=== PATIENT | male | born 1980 | race Caucasian/White ===

== ENCOUNTER 2017-03-04 18:59 | Emergency (ER) | payer SELFPAY ==
[2017-03-04 19:17] VITALS: RESP 16; TEMP 98.1
--- NOTE | 2017-03-04 20:21 | EDPHY ---
H & P Time Seen by Provider: 03/04/17 19:33 HPI/ROS: CHIEF COMPLAINT: Left neck mass x5 months HISTORY OF PRESENT ILLNESS: 36-year-old male remote history of melanoma, complaining of a progressively enlarging left lateral neck mass for which he has been seen by his primary care provider and by a scrubber machine tender today who recommend he come to the emergency department for further evaluation as she did not feel comfortable performing biopsy on the area. He has had no dysphagia or odynophagia. No change in voice. He does have reproducible pain with extremes of lateral movement. PHYSICAL EXAM (Prior to examination, patient consented to physical exam, hands were washed and my usual and customary physical exam procedures followed) 1) GENERAL: Well-developed, well-nourished, alert and oriented. Appears to be in no acute distress. 2) HEAD: Normocephalic 3) HEENT: sclera anicteric 4) LUNGS: Breathing comfortably. 5) SKIN: on the left lateral aspect of the patient's neck zone 2 he has a 4 cm x 4 cm freely mobile nontender mass with normal coloration. No erythema. No fluctuance. His full range of motion of the neck with no crepitus. No thyromegaly Smoking Status: Never smoked Constitutional: Initial Vital Signs Temperature (C) 36.7 C 03/04/17 19:13 Heart Rate 87 03/04/17 19:13 Respiratory Rate 16 03/04/17 19:13 Blood Pressure 133/84 H 03/04/17 19:13 O2 Sat (%) 96 03/04/17 19:13 O2 Delivery Mode Room Air Allergies/Adverse Reactions: No Known Allergies Allergy (Unverified 03/04/17 19:13) Home Medications: Medication Instructions Recorded NK [No Known Home Meds] 03/04/17 ED Images - Head Head Front/Back: 1 - mass MDM/Departure - MDM ED Course/Re-evaluation: This patient and I and his friend had a lengthy discussion regarding his left lateral neck mass or stone progressively enlarging for the past 5 months. He was seen by scrubber machine tender who sent to the emergency department for biopsy of this area this evening. Informed the patient that we do not perform biopsies from the emergency department. We discussed multiple possible etiologies for his enlarging mass including but not limited to malignancy, lipoma. From an emergency department perspective I do not think that emergent imaging studies are indicated such as ultrasound, MRI, CT scan. However, I did stress the importance of close follow-up and I have recommended follow-up with General surgery as provided him this referral information. - Depart Disposition: Home, Routine, Self-Care Clinical Impression: Mass in neck Condition: Good Instructions: Soft Tissue Mass (ED) Additional Instructions: Return to the emergency department immediately if you develop difficulty swallowing, change in voice, limitations in range of motion or any other symptoms that concern Referrals: Hilton Bowden MD [Medical Doctor] - 1-2 days without fail (Dr. Hilton Bowden is a general surgeon )
[2017-03-04 20:43] VITALS: BP 132/80; PULSE 71; O2SAT 97
== END 2017-03-04 20:43 | disposition home or self-care (01) ==
DX: R22.1 Localized swelling, mass and lump, neck (principal)

== ENCOUNTER → 2017-03-29 | Outpatient (CLI) | payer OTHER ==
[~2017-03-29] MED LIST: GADOBUTROL 10 ML VIAL IVP ONE
== END ==
LOC: FIMAGING 08:10
PROVIDERS: ATTEND Internal Medicine Hematology & Oncology
DX: C43.9 Malignant melanoma of skin, unspecified (principal)
CPT/HCPCS: A9585

== ENCOUNTER 2017-05-03 23:46 | Inpatient (IN) | payer MEDICAID ==
--- NOTE | 2017-05-03 23:56 | EDPHY ---
H & P Stated Complaint: CA pt, abd pain HPI/ROS: HPI CHIEF COMPLAINT: right lower quadrant abdominal pain times 48 hours HISTORY OF PRESENT ILLNESS: This patient is a 36-year-old male history of metastatic melanoma. Recently diagnosed 6 weeks ago. He sees Dr. Mendoza. He is not going under any chemo or radiation this time. He has chosen a natural course to treat his melanoma. He presents emergency room with 48 hours of nausea vomiting mainly bilious, and severe right lower quadrant pain. Worse when he takes a deep breath in. Additionally tells me hurts when he lifts his right leg. He denies fever. He does have chills at night. He states he has to take opioids however has been off them for 10 days. He has been doing multiple enemas per day. He denies chest pain or shortness of breath. Of note he has a very rather large growth coming out of the left side of his neck and shoulder consistent with melanoma. Past Medical History: Metastatic melanoma. Past Surgical History: No recent surgery Social History: Denies daily use drugs alcohol tobacco products. Family History: Noncontributory ROS REVIEW OF SYSTEMS: A comprehensive 10 point review of systems is otherwise negative aside from elements mentioned in the history of present illness. Exam Constitutional appears nontoxic, triage nursing summary reviewed, vital signs reviewed, awake/alert. Eyes normal conjunctivae and sclera, EOMI, PERRLA. HENT Left Neck: Shows a rather large growth left neck, left shoulder region. It is a mass bleeding. Fungating. normal inspection, atraumatic, moist mucus membranes, no epistaxis, neck supple/ no meningismus, no raccoon eyes. Respiratory clear to auscultation bilaterally, normal breath sounds, no respiratory distress, no wheezing. Cardiovascular rate normal, regular rhythm, no murmur, no edema, distal pulses normal. Gastrointestinal soft, non-tender, no rebound, no guarding, normal bowel sounds, no distension, no pulsatile mass. Genitourinary no CVA tenderness. Musculoskeletal no midline vertebral tenderness, full range of motion, no calf swelling, no tenderness of extremities, no meningismus, good pulses, neurovascularly intact. Skin pink, warm, & dry, no rash, skin atraumatic. Neurologic awake, alert and oriented x 3, AAOx3, moves all 4 extremities equally, motor intact, sensory intact, CN II-XII intact, normal cerebellar, normal vision, normal speech. Psychiatric normal mood/affect. Heme/Lymph/Immune no lymphadenopathy. Differential Diagnosis: Includes but is not limited to in a particular order acute appendicitis, ruptured appendicitis, bowel perforation, peritonitis Medical Decision Making: Plan for this patient IV establishment with IV fluid bolus IV Dilaudid for pain control IV Zofran for nausea check lactic acid, CT scan abdomen pelvis with IV contrast. Re-evaluation: 0127AM: CT report called to me by Dr. Sweeney that shows ascites in the abdomen dilated bowel loops of the large intestines extensive metastatic disease. I did discuss case with Dr. Bowden' with surgery about this patient's exquisitely tender abdomen in the were unable to see the appendix it is still possible he has a ruptured appendix or appendicitis. Given that is high white count and significant abdominal pain on exam I will have surgery see and evaluate him. It is possible that he has peritonitis from his ascites and his abdomen pain is from dilated bowel loops. I have ordered him IV Invanz. He is getting a 2nd L. and surgery will consult. I have updated the patient as well. 0202: Spoke with Dr. Zambrano who has established relationship with this patient. Will be glad to take care of the patient. I did describe this patient has a large bowel obstruction on his CT scan elevated white count and unable to visualize the appendix. He is fine with an NG tube and IV antibiotics. He is requesting the patient gets admitted to Medicine. Will be glad to consult on this patient take care of him. I have updated the patient is fine with this plan for admission. 0217AM: Lengthy discussion with this patient he has agreed for IV Invanz, agreed for NG tube and IV fluids. Nausea medicine and pain medicine. Agrees for hospitalization. Patient been updated his questions have been answered. Source: Patient - Medical/Surgical History Hx Asthma: No Hx Chronic Respiratory Disease: No Hx Diabetes: No Hx Cardiac Disease: No Hx Renal Disease: No Hx Cirrhosis: No Hx Alcoholism: No Hx HIV/AIDS: No Hx Splenectomy or Spleen Trauma: No Other PMH: PSHx: melanoma on back of neck removed. PMHx: denies - Social History Smoking Status: Never smoked Constitutional: Initial Vital Signs Temperature (C) 37.1 C 05/03/17 23:50 Heart Rate 104 H 05/03/17 23:50 Respiratory Rate 20 05/03/17 23:50 Blood Pressure 116/95 H 05/03/17 23:50 O2 Sat (%) 97 05/03/17 23:50 O2 Delivery Mode Room Air Allergies/Adverse Reactions: No Known Allergies Allergy (Unverified 05/03/17 23:49) Home Medications: Medication Instructions Recorded Ondansetron HCl [Zofran] 8 mg PO BID PRN 05/04/17 Sennosides [Senokot 8.6mg (OTC)] 1 each PO DAILY PRN 05/04/17 Medical Decision Making - Data Points Laboratory Results: Laboratory Results 05/04/17 00:00 05/04/17 00:00 Medications Given: Dexamethasone (Decadron Injection) 4 mg IVP BID ELIZABETH Stop: 11/02/17 09:40 Last Admin: 05/08/17 21:22 Dose: 4 mg Enoxaparin Sodium (Lovenox) 40 mg SC DAILY ELIZABETH Stop: 10/31/17 08:59 Last Admin: 05/08/17 08:14 Dose: Not Given Fentanyl (Duragesic) 25 mcg TD Q72H ELIZABETH Stop: 05/14/17 11:59 Last Admin: 05/07/17 14:28 Dose: 25 mcg Ertapenem 1 gm/ Sodium (Chloride) 100 mls @ 200 mls/hr IV DAILY ELIZABETH PRN Reason: Protocol Stop: 05/08/18 21:59 Last Admin: 05/08/17 13:58 Dose: 100 mls Famotidine/Sodium Chloride (Pepcid 20 Mg (Premix)) 50 mls @ 200 mls/hr IV Q12HRS ELIZABETH Stop: 11/02/17 10:14 Last Admin: 05/08/17 21:22 Dose: 50 mls Sodium Chloride (Ns) 1,000 mls @ 100 mls/hr IV CONT ELIZABETH Stop: 11/04/17 14:44 Last Admin: 05/08/17 21:29 Dose: 1,000 mls Lorazepam (Ativan Injection) 1 mg IVP Q4HRS PRN PRN Reason: Anxiety, Unable to Take PO Stop: 11/02/17 15:43 Last Admin: 05/09/17 01:54 Dose: 1 mg Ondansetron HCl (Zofran Odt) 4 mg PO Q4HRS PRN PRN Reason: Nausea/Vomiting, Use 1st Stop: 10/31/17 02:08 Last Admin: 05/07/17 22:03 Dose: 4 mg Ondansetron HCl (Zofran) 8 mg IVP Q8H PRN PRN Reason: Nausea/Vomiting, Can't Take PO Stop: 11/02/17 09:25 Last Admin: 05/08/17 15:50 Dose: 8 mg Oxycodone HCl (Oxycodone Ir) 5 - 10 mg PO Q4 PRN PRN Reason: Pain, Severe Able to Take PO Stop: 05/17/17 13:52 Last Admin: 05/08/17 22:32 Dose: 10 mg Senna/Docusate Sodium (Senokot-S) 1 - 2 tab PO BID ELIZABETH PRN Reason: Protocol Stop: 10/31/17 20:59 Last Admin: 05/08/17 21:22 Dose: 1 tab Discontinued Medications Benzocaine (Hurricaine [place]) 1 g MM EDNOW ONE Stop: 05/04/17 02:55 Last Admin: 05/04/17 03:07 Dose: 1 g Hydromorphone HCl (Dilaudid) 1 mg IVP EDNOW ONE Stop: 05/04/17 00:09 Last Admin: 05/04/17 00:27 Dose: 1 mg Hydromorphone HCl (Dilaudid) 1 mg IVP EDNOW ONE Stop: 05/04/17 02:35 Last Admin: 05/04/17 02:36 Dose: 1 mg Hydromorphone HCl (Dilaudid) 0.4 - 1 mg IVP Q4HRS PRN PRN Reason: Pain, Severe Unable to Take PO Stop: 05/14/17 02:08 Last Admin: 05/04/17 10:01 Dose: 1 mg Hydromorphone HCl (Dilaudid) 0.4 - 1 mg IVP Q2 PRN PRN Reason: Pain, Severe Unable to Take PO Stop: 05/14/17 02:46 Last Admin: 05/07/17 10:41 Dose: 0.5 mg Sodium Chloride (Ns) 1,000 mls @ 0 mls/hr IV EDNOW ONE; Wide Open PRN Reason: Protocol Stop: 05/04/17 00:09 Last Admin: 05/04/17 00:26 Dose: 1,000 mls Ertapenem 1 gm/ Sodium (Chloride) 100 mls @ 200 mls/hr IV EDNOW ONE PRN Reason: Protocol Stop: 05/04/17 00:46 Last Admin: 05/04/17 02:24 Dose: 100 mls Sodium Chloride (Ns) 1,000 mls @ 0 mls/hr IV ONCE ONE PRN Reason: Wide Open Stop: 05/04/17 01:14 Last Admin: 05/04/17 02:25 Dose: 1,000 mls Sodium Chloride (Ns) 1,000 mls @ 125 mls/hr IV CONT ELIZABETH Stop: 10/31/17 02:14 Last Admin: 05/08/17 06:33 Dose: 1,000 mls Ketorolac Tromethamine (Toradol) 15 mg IVP Q6 PRN PRN Reason: Pain, Inflammatory Stop: 05/09/17 14:48 Last Admin: 05/06/17 00:55 Dose: 15 mg Lidocaine (Uroject Lidocaine 2% Jelly) 20 ml UR ONCE ONE Stop: 05/04/17 02:54 Last Admin: 05/04/17 03:07 Dose: 20 ml Olanzapine (Zyprexa) 2.5 mg PO ONCE ONE Stop: 05/08/17 07:27 Last Admin: 05/08/17 08:13 Dose: 2.5 mg Ondansetron HCl (Zofran) 4 mg IVP EDNOW ONE Stop: 05/04/17 00:09 Last Admin: 05/04/17 00:27 Dose: 4 mg Ondansetron HCl (Zofran) 4 mg IVP Q4HRS PRN PRN Reason: Nausea/Vomiting, Can't Take PO Stop: 10/31/17 02:08 Last Admin: 05/06/17 08:51 Dose: 4 mg Ondansetron HCl (Zofran) 8 mg IVP Q4HRS PRN PRN Reason: Nausea/Vomiting, Can't Take PO Stop: 10/31/17 02:08 Last Admin: 05/06/17 09:39 Dose: 4 mg Promethazine HCl (Phenergan) 6.25 - 12.5 mg IVP Q6HRS PRN PRN Reason: Nausea/Vomiting, Use 2nd Stop: 10/31/17 02:08 Last Admin: 05/06/17 04:53 Dose: 6.25 mg Promethazine HCl (Phenergan) 12.5 mg IVP EDNOW ONE Stop: 05/04/17 03:03 Last Admin: 05/04/17 03:29 Dose: Not Given Departure - Departure Disposition: [facility] Acute Clinical Impression: Large bowel obstruction Melanoma Qualifiers: Melanoma location: unspecified site Qualified Code(s): C43.9 - Malignant melanoma of skin, unspecified Condition: Fair
[2017-05-04] MEDS ORDERED: HYDROmorphONE/DILAUDID 1 MG/ML SYR IVP ONE ×2 (00:08→02:34)
[2017-05-04] MEDS ORDERED: ONDANSETRON 4 MG/2 ML VIAL IVP ONE (00:08)
[2017-05-04] MEDS ORDERED: NS 1,000 ML IV ONE ×2 (00:08→01:13)
[2017-05-04 00:14] LABS: % IMMATURE GRANULYOCYTES 0.5 % (0.0-1.1); ABSOLUTE IMMATURE GRANULOCYTES 0.09 10^3/uL (0.00-0.10); ADD DIFF? NO; ADD MORPH? NO; ADD SCAN? NO; ATYPICAL LYMPHOCYTE FLAG 10 (0-99); FRAGMENT RBC FLAG 0 (0-99); HEMATOCRIT 31.5 % (40.0-51.0); HEMOGLOBIN 10.6 g/dL (13.7-17.5); LEFT SHIFT FLG 10 (0-99); LIPEMIA HEMOLYSIS FLAG 80 (0-99); MEAN CELL HEMOGLOBIN 29.4 pg (27.9-34.1); MEAN CELL HEMOGLOBIN CONCENTR. 33.7 g/dL (32.4-36.7); MEAN CELL VOLUME 87.5 fL (81.5-99.8); MEAN PLATELET VOLUME 9.6 fL (8.7-11.7); PLATELET CLUMPS FLAG 0 (0-99); PLATELET COUNT 677 10^3/uL (150-400); RED CELL DISTRIBUTION WIDTH 11.6 % (11.5-15.2)
[2017-05-04] MEDS ORDERED: ERTAPENEM 1 GM in NS 100 ML IV ONE (00:17)
[2017-05-04 00:26] LABS: ALANINE AMINOTRANSFERASE 32 IU/L (21-72); ALBUMIN 3.8 g/dL (3.5-5.0); ALKALINE PHOSPHATASE 123 IU/L (38-126); ANION GAP 14 mEq/L (8-16); ASPARTATE AMINOTRANSFERASE 23 IU/L (17-59); BILIRUBIN,TOTAL 0.6 mg/dL (0.1-1.4); BILIRUBIN-CONJUGATED 0.2 mg/dL (0.0-0.5); BILIRUBIN-UNCONJUGATED 0.4 mg/dL (0.0-1.1); CALCIUM 10.2 mg/dL (8.5-10.4); CARBON DIOXIDE 25 mEq/l (22-31); CHLORIDE 94 mEq/L (97-110); CREATININE 1.1 mg/dL (0.7-1.3); GLOMERULAR FILTRATION RATE > 60; GLUCOSE 124 mg/dL (70-100); POTASSIUM 4.7 mEq/L (3.5-5.2); SODIUM 133 mEq/L (134-144); TOTAL PROTEIN 7.4 g/dL (6.3-8.2)
[2017-05-04 00:31] LABS: APTT 30.5 SEC (23.0-38.0); INR 1.16 (0.83-1.16); PROTIME(PATIENT) 14.8 SEC (12.0-15.0)
[2017-05-04] MEDS ORDERED: IOPAMIDOL (ISOVUE-300) 100 ML BTL ONE (00:38)
[2017-05-04] MEDS ORDERED: HYDROmorphONE/DILAUDID 1 MG/ML SYR IVP PRN (02:09)
[2017-05-04] MEDS ORDERED: ACETAMINOPHEN 325 MG TAB PO PRN (02:09)
[2017-05-04] MEDS ORDERED: LIDOCAINE 2% JELLY 20 ML (UROJECT) ONE (02:27)
[2017-05-04] MEDS ORDERED: BENZOCAINE UNIT DOSE SPRAY HURRICAINE MM ONE (02:27)
[2017-05-04] MEDS ORDERED: LIDOCAINE 2% JELLY 20 ML (UROJECT) UR ONE (02:53)
[2017-05-04] MEDS ORDERED: BENZOCAINE 57 G CAN HURRICAINE MM ONE (02:54)
[2017-05-04] MEDS ORDERED: PROMETHAZINE HCL 25 MG/ML INJ ONE (02:56)
[2017-05-04] MEDS ORDERED: PROMETHAZINE HCL 25 MG/ML INJ IVP ONE (03:02)
[2017-05-04] MEDS: PROMETHAZINE HCL 25 MG/ML INJ IVP PRN (03:03)
--- NOTE | 2017-05-04 03:32 | GHP ---
[f rep st] HISTORY AND PHYSICAL DATE OF ADMISSION: 05/04/2017 CHIEF COMPLAINT: Abdominal pain. HISTORY OF PRESENT ILLNESS: A 36-year-old male with a diagnosis of metastatic melanoma, who presents with rapid onset severe right-sided abdominal discomfort. The patient reports smoldering, less intense abdominal pain in the 24 hours prior to presentation. The morning of presentation developed very sharp intense abdominal discomfort with associated nausea and vomiting. He reports that his oral intake has been nearly 0 in the course of the last 48 hours. Prior to that, it has been limited to typically a meal a day. Reports constipation that he has been using enemas and laxatives for. Denies any bloody stools. Denies dysuria or hematuria. Denies cough. Does have difficulty with deep breathing now that he has the severe abdominal pain. Denies any vision changes. Has severe pain associated with his melanoma of his left neck. Denies dysphagia. PAST MEDICAL HISTORY: Metastatic melanoma with metastases to the liver, lung. SOCIAL HISTORY: Negative for tobacco, alcohol. He is using marijuana for pain. FAMILY HISTORY: Negative for melanoma. ADVANCED DIRECTIVES: The patient wishes to be full cor, full tube. His girlfriend would be his medical decision maker. REVIEW OF SYSTEMS: A 10-point review of systems is negative with the exception of that reported in the HPI. PHYSICAL EXAMINATION: VITAL SIGNS: Blood pressure 116/95, heart rate 104, respiratory rate 20, 97% on room air, 37.1. GENERAL: This is a thin-appearing young male, uncomfortable, lying in bed. HEENT: Notable for a large mass of the left neck/shoulder, which is irregular and necrotic, fungating. CARDIAC: Patient is regular rate and rhythm. PULMONARY: Clear to auscultation bilaterally. GASTROINTESTINAL: The patient is thin. Has decreased bowel sounds. ABDOMEN: Soft. He is tender to palpation in the right upper and lower quadrants. There is voluntary guarding. MUSCULOSKELETAL: Negative for any lower extremity edema. SKIN: Negative for any rashes. NEUROLOGIC: The patient is alert and oriented x3. PSYCHIATRIC: He is pleasant and cooperative on interview and examination. DATA: White count 18.06, hematocrit 31, platelets of 677. Sodium of 133, creatinine 1.1. Liver function tests are normal. CT of the abdomen shows a markedly dilated large bowel with metastatic disease in both the lungs and liver. There is also a suspect mass of the left kidney. No clear transition point identified by Radiology. ASSESSMENT AND PLAN: This is a 36-year-old male with metastatic melanoma presenting with abdominal pain. 1. Acute large bowel obstruction. The patient has nausea, vomiting, severe pain, intolerant of oral intake with concerns for mechanical obstruction. The patient is being admitted. NG tube placed. IV fluids and IV pain medications initiated. Dr. Zambrano, who is his primary surgeon in the outpatient setting, will follow today. Have discussed goals of care with this patient. See below. 2. Acute hyponatremia. Suspect hypovolemic in nature. Based on his decreased oral intake, will carefully fluid resuscitate and recheck in the morning. 3. Widely metastatic melanoma. The patient is interested in meeting our palliative care team, had already established upcoming appointments with [facility]. I do believe based on his imaging that hospice is an appropriate direction for him. Will consult Palliative Care while he is inpatient, as above. Continue aggressively treating his pain. 4. Acute leukocytosis - suspect 2/2 acute bowel obstruction - follow with supportive care 4. Prophylaxis with Lovenox. 5. Diet. N.p.o. with an NG tube and IV fluids. DISPOSITION: I expect greater than 2 midnights, as the patient is presenting with bowel obstruction and widely metastatic melanoma that requires diagnostic and therapeutic plan. I have discussed the case with the emergency room physician. Patient will be triaged to the medical-surgical floor for care. /[id number]/MODL MTDD
[2017-05-04] MEDS: NS 1,000 ML IV SCH (04:15)
[2017-05-04] MEDS: HYDROmorphONE/DILAUDID 1 MG/ML SYR IVP PRN ×4 (06:18→20:59)
[2017-05-04] MEDS: ONDANSETRON 4 MG/2 ML VIAL IVP PRN ×3 (06:18→20:42)
--- NOTE | 2017-05-04 09:02 | HOSPPROG ---
Hospitalist Progress Note Assessment/Plan: #Metastatic melanoma: primary Oncologist, Kelly #Acute abdominal pain: Dr. Zambrano evaluated. Unclear if truly LBO or rather tumor burden. NG clamped. He is reviewing with Radiology #Acute on chronic pain: was having benefit from marijuana. previously using Oxycontin 20mg BID. Start Fentanyl patch 25mcg and uptitrate as needed. PRN IV dilaudid PRN #Goals: Po hospice to evaluate today. Has family in [place]. #DVT ppx: Lovenox Subjective: pain improved this morning. Objective: Vital Signs Temp Pulse Resp BP Pulse Ox 36.5 C 87 16 132/87 H 95 05/04/17 08:18 05/04/17 08:18 05/04/17 08:18 05/04/17 08:18 05/04/17 08:18 05/03/17 05/04/17 05/05/17 05:59 05:59 05:59 Intake Total 2000 Output Total 100 Balance 1900 PT 14.8 SEC (12.0-15.0) 05/04/17 00:00 INR 1.16 (0.83-1.16) 05/04/17 00:00 - Physical Exam Constitutional: other (thin, restless) Ears, Nose, Mouth, Throat: dry mucous membranes, other (left neck/shoulder mass with necrosis and bleeding) Cardiovascular: regular rate and rhythym Respiratory: no respiratory distress Gastrointestinal: other (quiet BS. Mild RLQ with palp) Genitourinary: no bladder fullness Skin: warm Musculoskeletal: full muscle strength Neurologic: AAOx3, CN II-XII Intact Psychiatric: interacting appropriately ICD10 Worksheet Patient Problems: Problems Problem Status Onset Large bowel obstruction Acute Melanoma Acute
--- NOTE | 2017-05-04 09:48 | SOAPPROG ---
SOAP Progress Note Assessment/Plan: Assessment:patient seen and evaluated. progressive metastatic melanoma, RLQ pain, leucocytosis. images reviewed with family and care plan discussed at length. doubt LBO given lack of SB dilation. still query appy as a possibility vs progressive abdominal tumor burden. will review with rads. family also discussing desire for active treatment vs palliation which will also factor into their decision. will return later today to discuss further. leaving NG clamped for now. Plan: 05/04/17 09:45 Objective: Vital Signs Temp Pulse Resp BP Pulse Ox 36.5 C 87 16 132/87 H 95 05/04/17 08:18 05/04/17 08:18 05/04/17 08:18 05/04/17 08:18 05/04/17 08:18 05/03/17 05/04/17 05/05/17 05:59 05:59 05:59 Intake Total 2000 Output Total 100 Balance 1900 PT 14.8 SEC (12.0-15.0) 05/04/17 00:00 INR 1.16 (0.83-1.16) 05/04/17 00:00 ICD10 Worksheet Patient Problems: Problems Problem Status Onset Large bowel obstruction Acute Melanoma Acute
[2017-05-04 09:50] LABS: HEMATOCRIT 27.6 % (40.0-51.0); HEMOGLOBIN 9.3 g/dL (13.7-17.5); MEAN CELL HEMOGLOBIN 29.9 pg (27.9-34.1); MEAN CELL HEMOGLOBIN CONCENTR. 33.7 g/dL (32.4-36.7); MEAN CELL VOLUME 88.7 fL (81.5-99.8); RED BLOOD CELL COUNT 3.11 10^6/uL (4.40-6.38); RED CELL DISTRIBUTION WIDTH 11.8 % (11.5-15.2)
[2017-05-04 10:20] LABS: ANION GAP 10 mEq/L (8-16); CALCIUM 8.9 mg/dL (8.5-10.4); CARBON DIOXIDE 24 mEq/l (22-31); CHLORIDE 100 mEq/L (97-110); CREATININE 0.9 mg/dL (0.7-1.3); GLOMERULAR FILTRATION RATE > 60; GLUCOSE 97 mg/dL (70-100); POTASSIUM 4.7 mEq/L (3.5-5.2); SODIUM 134 mEq/L (134-144)
[2017-05-04] MEDS: ENOXAPARIN 40 MG/0.4 ML SYR SC SCH (11:35)
[2017-05-04] MEDS ORDERED: LACTULOSE 20 GM/30 ML UDCUP PO PRN (11:44)
[2017-05-04] MEDS ORDERED: BISACODYL 10 MG SUPP PR PRN (11:44)
[2017-05-04] MEDS ORDERED: MAGNESIUM HYDROXIDE 30 ML UDCUP PO PRN (11:44)
[2017-05-04] MEDS ORDERED: POLYETHYLENE GLYCOL 3350 17 GM PKT PO PRN (11:44)
[2017-05-04] MEDS: fentaNYL 25 MCG PATCH TD SCH (12:11)
[2017-05-04 15:33] LABS: COLOR YELLOW; LEUKOCYTE ESTERASE,URINE NEGATIVE (NEGATIVE); NITRITE,URINE NEGATIVE (NEGATIVE)
--- NOTE | 2017-05-04 15:44 | GCON ---
[f rep st] CONSULTATION MEDICAL ONCOLOGY CONSULTATION REASON FOR CONSULTATION: Metastatic melanoma. RECOMMENDATIONS: We could certainly try Tafinlar 150 mg p.o. b.i.d. 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 What these mutations mean are that this cancer may not be as responsive as a mutation of BRAF with V600E. The alternative recommendation I discussed was home hospice. EXECUTIVE SUMMARY: The patient is a gentleman who was diagnosed in 2012 with a cutaneous melanoma apparently stage I, treated with a wide excision, without a sentinel node biopsy. The patient is 36 years of age. He did well until he developed a nodule on his left shoulder which began about October 2016. Ultimately this was biopsied and found to be recurrent metastatic melanoma and it was sent for BRAF testing and the above-noted mutations were identified. The patient came into the hospital because of significant abdominal pain, including pain in the left upper quadrant. He had taken himself off the oxycodone that he was given and placed himself on CBD oil for management of his pain. The patient had unrelenting and severe pain and came to the emergency room for help. His history is that he generally had favorable health. He grew up in [place] in the [place] area. He has no history of melanoma in the family and his current support system includes his girlfriend. The patient is going through a divorce and he has 2 children back in [place]. The patient's mother is currently with him here now and he has a brother who offers some support from [place]. 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 FAMILY HISTORY: Noncontributory. MEDICATIONS: He previously was on no regular medications. REVIEW OF SYSTEMS: Reveals that he is not having any headaches. He has been in significant pain, mainly in the abdomen. The pain in the abdomen is mostly localized in the right upper quadrant and in the right lower quadrant. He had a CAT scan in the process of admitting the patient, which reveals that he has extensive metastatic disease. He has numerous pulmonary metastases as well as numerous liver metastases, probably 20 and the largest of which is 3.2 cm in size as well as periaortic disease, right adrenal metastasis. CLINICAL EXAM: GENERAL: Reveals a well-developed gentleman looking older than his stated age. HEENT: Shows he is alert and oriented. He has no scleral icterus. The patient has a draining left neck mass that is large, necrotic and fungating. LUNGS: Clear to P and A. CV: Regular. S1 is normal, S2 is normally split. ABDOMEN: Asthenic and scaphoid. He has no hepatosplenomegaly that I detect. He has no extremity edema or calf tenderness. NEUROLOGIC: He is currently intact. Please note he had an MRI of the brain in March which was negative. 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 The combination of these 2 mutations implies that this disease may be more resistant than typical BRAF mutations and the location of the BRAF mutation also may imply some resistance. Nonetheless, I think is not unreasonable to give a trial of dabrafenib and trametinib, but there are side effects to that including fever, diarrhea, some mouth sores, skin rash, photo dermatitis and some increase risk of nonmelanomatous cutaneous skin cancer. I think if it is successful, you will usually get a response within a few weeks of starting treatment. If it is unsuccessful, treatment could easily be discontinued. I encouraged our staff to get him on Medicaid. I think an alternative to this approach would be to use home hospice care. Obviously, even with Tafinlar and trametinib, survival rates on an average are less than a couple of years, but certainly without any treatment, I think this will run its course within a month or maybe 2, but that is only speculative on my part. /[id number]/MODL MTDD
--- NOTE | 2017-05-04 17:54 | GCON ---
[f rep st] CONSULTATION DATE OF CONSULTATION: 05/04/2017 REASON FOR EVALUATION: Metastatic melanoma, possible appendicitis versus large bowel obstruction. HISTORY OF PRESENT ILLNESS: A 36-year-old male, well known to me, status post remote back melanoma excision. A sentinel node biopsy was not initially completed. The patient presented to my office in March with a rapidly progressive left neck mass with severe left shoulder pain. An incisional biopsy was performed, confirming metastatic melanoma. Subsequent CT scans were performed, showing metastatic melanoma to the lungs as well as retroperitoneum. The patient did follow up with Dr. Mendoza from Oncology. He denied traditional means of therapy and opted to proceed with more alternative-type measures. He presented to the emergency room earlier this morning with a 2-day history of worsening right lower quadrant abdominal pain. He had been having nausea and vomiting over the past week. He had been on narcotic pain medicines which would cause severe constipation for him in regard to his left shoulder and neck pain. He had been using multiple cathartics with some relief of his left upper quadrant pain initially. The right lower quadrant pain was new and progressive, which prompted them to come to the emergency room to rule out appendicitis. CT imaging was performed at that time, disclosing diffusely dilated large intestine and the appendix was not able to be visualized. A nasogastric tube was placed and the patient admitted for further pain control and consultative measures. To my exam, the patient and girlfriend note that his right lower quadrant pain is feeling slightly better on exam this morning. He denies fevers or chills at home. He denies chest pains or shortness of breath. His bowel movements, albeit soft when he has them, have not been pencil thin in nature. He reports some mild pelvic discomfort, and this has been insignificant compared to his neck pain and intermittent left upper quadrant pain which is relieved with bowel movements. PAST MEDICAL HISTORY: Melanoma. PAST SURGICAL HISTORY: None. MEDICATIONS: Cannabis. ALLERGIES: No known drug allergies. SOCIAL HISTORY: No alcohol. No tobacco. Significant other. FAMILY HISTORY: Notable for melanoma. REVIEW OF SYSTEMS: Notable for the above pain and GI-related complaints. Otherwise, other 10-point review of systems unremarkable. LABORATORY STUDIES: Last night, hemoglobin 11, platelets of 677, white count of 18. Repeat labs this morning: White count down to 14. INR 1.1. Liver enzymes within reference range. Lipase 320. PHYSICAL EXAM: HEENT: Anicteric NECK: Large exophytic softball size left supraclavicular necrotic mass with tenderness. HEART: Regular. LUNGS: Clear. ABDOMEN: Soft, right lower quadrant tenderness with minimal guarding. No rebound. No Rovsing. No Psoas sign. No mass. Normal skin. EXTREMITIES: Unremarkable. NEURO: Alert, lethargic. CT abdomen and pelvis images were directly reviewed on PACS and later with Radiology. Extensive progressive metastatic disease including pulmonary and liver metastases and progression of left perinephric adenopathy/mass lesions. The colon was noted to be diffusely dilated. Small bowel is not noted to be particularly dilated. Query ascites versus pelvic metastatic disease. Appendix not able to be definitively visualized, though no secondary findings of appendicitis are seen. IMPRESSIONS: 1. Metastatic melanoma. 2. Right lower quadrant abdominal pain. The patient was seen multiple times throughout the morning. His right lower quadrant pain has slightly improved. He tolerated nasogastric tube clamping without increased nausea or vomiting with minimal residual volumes noted. I suspect the patient's symptoms are most likely due to progressive melanoma. He does not appear to be clinically obstructed, rather likely more of a functional colonic ileus likely resultant from medications and/or tumor burden. While appendicitis is not completely ruled out, I am encouraged by his slight improvement in symptoms and decreasing white count throughout his hospitalization. His nasogastric tube has been removed. I would agree with continued empiric antibiotic therapy, which does have some potential benefit in treating uncomplicated appendicitis rather than surgical exploration in this high-risk patient. The patient is exploring all options, including consideration for traditional therapy directed toward his melanoma versus possible palliative options as well. Care plan was extensively discussed with the patient and significant other at bedside on multiple occasions throughout the day as well as with nursing staff and with Dr. Viramontes. Will continue to follow with you and follow his serial abdominal exams should the need for laparoscopic intervention be necessary. /[id number]/MODL MTDD
--- NOTE | 2017-05-04 18:09 | WOCRNPDOC ---
WOCRN Advanced Assessment Note - Skin Integrity Problem, Advanced Assess Left Upper Clavicle Tumor Dressing Type: ABD Pad, Gauze Dressing Description: Clean/Dry, Intact Exudate Amount: Moderate Exudate Characteristic(s): Sanguinous Integumentary Issue Intervention: Dressing Changed, Dressing Initialed & Dated Monica Wound Tissue: Erythema Site Odor: Slight, Musky Site Measurement - Head-to-Toe Length X Width X Depth (cm): 5x5x-7 (7 cm raised) Skin Integrity Problem Comment: Large fungating tumor superior to clavicle. Tumor is vascular and necrotic, and per report from patient's girlfriend drains serosangenous fluid daily which recently became odiferous. Skin prep was applied monica wound after patient's chest/back/neck hair was cut with clippers. Tumor was wrapped in a silver contact layer (acticoat flex 7) and then covered with ABD. Extensive discussions with patient's girlfriend re: plan of care and dressing changes. Extra supplies given for home dressing changes. Wound care will round again 05/06.
[2017-05-04] MEDS: SENNOSIDES/DOCUSATE SODIUM TAB PO SCH ×2 (20:24→20:58)
--- NOTE | 2017-05-04 21:24 | PDPCPN ---
Palliative Care Progress Note Assessment/Plan: Referring provider: Dr Walls\ Reason for consult: Complex medical decision making Symptom control HPI: Arian Foster (Jon) is a 36 yo male with PMH remote melanoma now metastatic dx to liver and lung (dx February 2017) admitted to the hospital for increased right lower abdominal pain and nausea/vomiting. Ct of abdomen with possible large bowel obstruction with ng tube and surgery consult. Pain improved and most likely 2/2 worsening of met disease ng tube removed. Has been receiving alternative treatments since dx but now is seeking possible chemotherapy treatment. Palliative care consulted for complex medical decision making. Met with Reno, partner Renata, and friend at the bedside this afternoon. Reno was fatigued so conversation was somewhat limited due to this. We discussed his goals and hopes. Both he and Renata have hopes of a miracle cure and believe in non traditional ways of healing. we discussed quality of life which to Reno means being able to interact with people important in his life but also not be in terrible pain. Discussed options including hospice care. Po was present to give hospice information. Reno is undecided what to do but wants life prolongation. We discussed trying options does not mean he couldn't change his mind and consider other options as time passes. Goal is to keep his quality of life in mind with hope of life prolongation. Assessment: Physical: - Pain: abdominal pain and left shoulder pain - on fentanyl patch 25 mcg/hr - continue PRn with dilaudid or roxanol 5-10 mg PO Q2hr PRN - might consider lidocaine cream to left shoulder to help with pain - fatigue - maintain normal sleep/wake cycle - constipation - continue bowel protocol with senna and colace Emotional/psychological: has good support from close friends and partner Advanced Care Planning: Is patient decisional?: yes Code Status: full MD POA: unknown Plan: Has met with hospice and still deciding on options treatment vs hospice care. He would like some life prolongation but also with quality of life. palliative care to follow. Subjective: Just really tired Objective: Social History: Lives with partner Renata. has 2 children 5 and 8 from previous marriage who live in [place]. 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 Medication list reviewed ROS: General: fatigue, weakness, weight loss ENT: negative Resp: negative GI: poor appetite, abdominal pain : negative MS: negative Skin: left clavicle wound Neuro: negative Psych: negative Functional assessment: PPS: 60% Functional status: independent with ADLs Vital Signs Temp Pulse Resp BP Pulse Ox 37.2 C 92 14 134/92 H 94 05/04/17 20:54 05/04/17 20:54 05/04/17 20:54 05/04/17 20:54 05/04/17 20:54 Laboratory Results 05/04/17 09:40 05/04/17 09:40 05/03/17 05/04/17 05/05/17 05:59 05:59 05:59 Intake Total 2000 Output Total 100 350 Balance 1900 -350 PT 14.8 SEC (12.0-15.0) 05/04/17 00:00 INR 1.16 (0.83-1.16) 05/04/17 00:00 Physical Exam - Physical Exam General Appearance: alert, no apparent distress Respiratory: No respiratory distress, No accessory muscle use Skin: normal color, warm/dry Extremities: No pedal edema Neuro/Psych: alert, oriented x 3 ICD10 Worksheet Patient Problems: Problems Problem Status Onset Large bowel obstruction Acute Melanoma Acute Palliative care encounter Acute - ICD10 Problem Qualifiers (1) Palliative care encounter
[2017-05-04] MEDS: ERTAPENEM 1 GM in NS 100 ML IV SCH (23:56)
[2017-05-05] MEDS: NS 1,000 ML IV SCH ×3 (00:01→22:46)
[2017-05-05] MEDS: KETOROLAC 15 MG/1 ML SDV IVP PRN ×3 (00:08→15:24)
[2017-05-05 06:12] LABS: HEMATOCRIT 25.8 % (40.0-51.0); HEMOGLOBIN 8.7 g/dL (13.7-17.5); LIPEMIA HEMOLYSIS FLAG 80 (0-99); MEAN CELL HEMOGLOBIN CONCENTR. 33.7 g/dL (32.4-36.7); PLATELET COUNT 520 10^3/uL (150-400); RED CELL DISTRIBUTION WIDTH 11.8 % (11.5-15.2)
[2017-05-05 06:27] LABS: ANION GAP 10 mEq/L (8-16); CALCIUM 8.5 mg/dL (8.5-10.4); CARBON DIOXIDE 24 mEq/l (22-31); CHLORIDE 100 mEq/L (97-110); CREATININE 0.8 mg/dL (0.7-1.3); GLOMERULAR FILTRATION RATE > 60; GLUCOSE 82 mg/dL (70-100); POTASSIUM 4.5 mEq/L (3.5-5.2); SODIUM 134 mEq/L (134-144)
[2017-05-05] MEDS: ONDANSETRON 4 MG/2 ML VIAL IVP PRN ×3 (07:56→20:25)
[2017-05-05] MEDS: ERTAPENEM 1 GM in NS 100 ML IV SCH (08:39)
[2017-05-05] MEDS: SENNOSIDES/DOCUSATE SODIUM TAB PO SCH ×2 (08:40→22:59)
--- NOTE | 2017-05-05 08:47 | SOAPPROG ---
[facility] Progress Note Assessment/Plan: Assessment: # 1 BRAF mutated melanoma: even though this is not a V600E and there is an associated NRAS mutation i think it would be reasonable as did Dr. Mendoza to give a trial of dabrafenib and trametinib. the doses are 150 mg BID and 2 mg Q Day respectively. The SE include fever rash GI. They will need Medicaid and or indigent drug replacement. Bemetinib is not available. #2. Pain control: doing a little better. Plan: 05/05/17 08:24 Subjective: Reno is interested in pursuing treatment. Gutierrez is a little better. Objective: Vital Signs Temp Pulse Resp BP Pulse Ox 37.1 C 83 14 125/79 H 105 H 05/05/17 05:39 05/05/17 05:39 05/05/17 05:39 05/05/17 05:39 05/05/17 05:39 Laboratory Results 05/05/17 05:40 05/05/17 05:40 05/04/17 05/05/17 05/06/17 05:59 05:59 05:59 Intake Total 2000 Output Total 100 625 Balance 1900 -625 PT 14.8 SEC (12.0-15.0) 05/04/17 00:00 INR 1.16 (0.83-1.16) 05/04/17 00:00 - Time Spent With Patient Time Spent With Patient: 60 min ICD10 Worksheet Patient Problems: Problems Problem Status Onset Large bowel obstruction Acute Melanoma Acute Palliative care encounter Acute
--- NOTE | 2017-05-05 08:48 | HOSPPROG ---
Hospitalist Progress Note Assessment/Plan: #Metastatic melanoma: plan for dabrafenib, trametinib. Medicaid approved #Acute abdominal pain: Dr. Zambrano evaluated. Unclear if truly LBO or rather tumor burden. Had small BM, trial clears this morning #Acute on chronic pain: improved with addition of Fentanyl patch and Toradol. PRN IV dilaudid PRN #Nausea: Zofran PRN #Neck mass: wound care assisting with dressings #Goals: Po hospice evaluated 05/04. Has opted for oral chemo #DVT ppx: Lovenox #Diet: ADAT #Disp: warrants inpt care with acute pain requiring IV opioids, antiemetics Time spent on visit: 45 min reviewing records, counseling patient on pain control, reviewing case with Dr. Viramontes Subjective: had small BM, passing gas. Feels hungry Objective: Vital Signs Temp Pulse Resp BP Pulse Ox 37.1 C 83 14 125/79 H 105 H 05/05/17 05:39 05/05/17 05:39 05/05/17 05:39 05/05/17 05:39 05/05/17 05:39 Laboratory Results 05/05/17 05:40 05/05/17 05:40 05/04/17 05/05/17 05/06/17 05:59 05:59 05:59 Intake Total 2000 Output Total 100 625 Balance 1900 -625 PT 14.8 SEC (12.0-15.0) 05/04/17 00:00 INR 1.16 (0.83-1.16) 05/04/17 00:00 - Physical Exam Constitutional: no apparent distress, other (thin) Eyes: PERRL Ears, Nose, Mouth, Throat: moist mucous membranes, dry mucous membranes, other ( large left neck/shoulder mass dressed with serosang drainage) Respiratory: no respiratory distress, no rales or rhonchi Gastrointestinal: normoactive bowel sounds, tenderness (RUQ and epigastric TTP) , No rebound, No distension Genitourinary: no bladder fullness Skin: warm Musculoskeletal: full muscle strength Neurologic: AAOx3, CN II-XII Intact Psychiatric: interacting appropriately ICD10 Worksheet Patient Problems: Problems Problem Status Onset Large bowel obstruction Acute Melanoma Acute Palliative care encounter Acute
[2017-05-05] MEDS: PROMETHAZINE HCL 25 MG/ML INJ IVP PRN ×2 (11:24→12:50)
[2017-05-05] MEDS: HYDROmorphONE/DILAUDID 1 MG/ML SYR IVP PRN ×2 (13:11→20:25)
--- NOTE | 2017-05-05 14:31 | PDPCPN ---
Palliative Care Progress Note Assessment/Plan: HPI: Arian Foster (Jon) is a 36 yo male with PMH remote melanoma now metastatic dx to liver and lung (dx February 2017) admitted to the hospital for increased right lower abdominal pain and nausea/vomiting. Ct of abdomen with possible large bowel obstruction with ng tube and surgery consult. Pain improved and most likely 2/2 worsening of met disease ng tube removed. Has been receiving alternative treatments since dx but now is seeking possible chemotherapy treatment. Palliative care consulted for complex medical decision making. Reno seen this afternoon with Juliana at the bedside. Discussed he has decided to start treatment but also wants to find a balance between traditional treatment and holistic care. Discussed resources at discharge. Also started discussion of advanced care planning with naming an MDPOA as well as code status. Reno and Juliana are planning on continuing conversations around advanced directives and Reno feels [facility] understands his wishes well. Assessment: Physical: - Pain: abdominal pain and left shoulder pain - on fentanyl patch 25 mcg/hr - continue PRn with dilaudid or roxanol 5-10 mg PO Q2hr PRN - might consider lidocaine cream to left shoulder to help with pain - fatigue - maintain normal sleep/wake cycle - constipation - continue bowel protocol with senna and colace Emotional/psychological: has good support from close friends and partner Advanced Care Planning: Is patient decisional?: yes Code Status: full MD POA: would like to name partner Juliana as MDPOA. Will fill out paperwork. Plan: To start treatment with oncology. Medicaid was approved. Will need RN services at home for wound care as well as palliative care for symptom management. Subjective: pain is 6/10 and tolerable Objective: Vital Signs Temp Pulse Resp BP Pulse Ox 37.0 C 90 16 124/86 H 98 05/05/17 13:02 05/05/17 13:02 05/05/17 13:02 05/05/17 13:02 05/05/17 13:02 Laboratory Results 05/05/17 05:40 05/05/17 05:40 05/04/17 05/05/17 05/06/17 05:59 05:59 05:59 Intake Total 2000 Output Total 100 625 Balance 1900 -625 PT 14.8 SEC (12.0-15.0) 05/04/17 00:00 INR 1.16 (0.83-1.16) 05/04/17 00:00 Physical Exam - Physical Exam General Appearance: alert, no apparent distress Respiratory: No respiratory distress, No accessory muscle use Skin: normal color, warm/dry Extremities: No pedal edema Neuro/Psych: alert, oriented x 3 ICD10 Worksheet Patient Problems: Problems Problem Status Onset Large bowel obstruction Acute Melanoma Acute Palliative care encounter Acute - ICD10 Problem Qualifiers (1) Palliative care encounter
--- NOTE | 2017-05-05 14:34 | ASMTCMCOM ---
CM Note CM Note Notes: Med Data here to assess patient for Medicaid. Notified Medicaid approved. Pt physician notified. Cl eared for Home Care if needed as well as Chemo therapy. Date Signed: 05/05/2017 02:33 PM Electronically Signed By:Griselda Sauer
--- NOTE | 2017-05-05 17:26 | ASMTCMCOM ---
CM Note CM Note Notes: Met with patient and partner to discuss plans for discharge. Pt expressed concerns around the many things he has had to be addressing during his time here. He was however anxious to discuss options to assist them at home. I again told them they had been approved for Medicaid which he was deeply grateful for. He also said he would be very open to having [facility] home care coming in. They wondered if there would be a possibility of getting a hospital bed and I told them this could be checked through Medicaid. Also, We discussed the possibi lity of getting HCBS services which could be explored further. They are also very open to having [facility] in conjunction with [facility]. They expressed appreciation for the support they were receiving at [facility]. C/M will continue to follow. Date Signed: 05/05/2017 05:25 PM Electronically Signed By:Griselda Sauer
--- NOTE | 2017-05-05 18:58 | SOAPPROG ---
SOAP Progress Note Assessment/Plan: Assessment: RLQ better. no nausea or vomiting. mult small pellets / bms. hungry. has decided to try oral BRAF therapy. afebrile. comfortable. abd markedly less tender. wbc 10. RLQ pain ?appy vs tumor vs both - low clinical suspicion for lbo at this time. would continue abx while hospitalized for poss appy - he is improving to this end with improving labs. will continue to follow with you. care plan discussed with patient and s.o. Plan: 05/04/17 09:45 05/05/17 18:55 Objective: Vital Signs Temp Pulse Resp BP Pulse Ox 37.4 C 92 16 133/89 H 95 05/05/17 16:00 05/05/17 16:00 05/05/17 16:00 05/05/17 16:00 05/05/17 16:00 Laboratory Results 05/05/17 05:40 05/05/17 05:40 05/04/17 05/05/17 05/06/17 05:59 05:59 05:59 Intake Total 2000 550 Output Total 100 625 Balance 1900 -625 550 PT 14.8 SEC (12.0-15.0) 05/04/17 00:00 INR 1.16 (0.83-1.16) 05/04/17 00:00 ICD10 Worksheet Patient Problems: Problems Problem Status Onset Large bowel obstruction Acute Melanoma Acute Palliative care encounter Acute
--- NOTE | 2017-05-05 19:44 | SOAPPROG ---
SOAP Progress Note Assessment/Plan: Assessment:Qi stagnation in Large Intestine. Heat and stagnation in Liver. Plan:Treat daily while in hospital. Regulate Qi and Blood, relieve pain. Treatment: LI 4, LI 11, ST 25, 36,37, L Carine 3, R Sp 6, R Sp 2, Juanpablo 6. retain needles 45 minutes, stimulate 3-4x during treatment. 05/05/17 19:46 Subjective: Reviewed patient file and history. Met with patient and girlfriend/SO Akasia. Patient reports pain, mainly in area of tumor on neck/shoulder as well as abdominal area. Also nausea, and lack of bm, though he has has some small ones today. Objective: Vital Signs Temp Pulse Resp BP Pulse Ox 37.4 C 92 16 133/89 H 95 05/05/17 16:00 05/05/17 16:00 05/05/17 16:00 05/05/17 16:00 05/05/17 16:00 Laboratory Results 05/05/17 05:40 05/05/17 05:40 05/04/17 05/05/17 05/06/17 05:59 05:59 05:59 Intake Total 2000 550 Output Total 100 625 Balance 1900 -625 550 PT 14.8 SEC (12.0-15.0) 05/04/17 00:00 INR 1.16 (0.83-1.16) 05/04/17 00:00 Patient appears thin, fairly low energy, but alert and aware, easy to communicate with. Pulse is rapid, thin, somewhat wiry. ICD10 Worksheet Patient Problems: Problems Problem Status Onset Large bowel obstruction Acute Melanoma Acute Palliative care encounter Acute
[2017-05-06] MEDS: KETOROLAC 15 MG/1 ML SDV IVP PRN (00:55)
[2017-05-06] MEDS: PROMETHAZINE HCL 25 MG/ML INJ IVP PRN (04:53)
[2017-05-06] MEDS: HYDROmorphONE/DILAUDID 1 MG/ML SYR IVP PRN ×5 (05:00→21:58)
[2017-05-06] MEDS: NS 1,000 ML IV SCH ×2 (06:55→15:59)
[2017-05-06 07:09] LABS: HEMATOCRIT 25.4 % (40.0-51.0); HEMOGLOBIN 8.6 g/dL (13.7-17.5); MEAN CELL HEMOGLOBIN 29.7 pg (27.9-34.1); MEAN CELL HEMOGLOBIN CONCENTR. 33.9 g/dL (32.4-36.7); MEAN CELL VOLUME 87.6 fL (81.5-99.8); RED BLOOD CELL COUNT 2.9 10^6/uL (4.40-6.38); RED CELL DISTRIBUTION WIDTH 11.6 % (11.5-15.2)
[2017-05-06 07:24] LABS: ANION GAP 9 mEq/L (8-16); CALCIUM 8.2 mg/dL (8.5-10.4); CARBON DIOXIDE 25 mEq/l (22-31); CHLORIDE 99 mEq/L (97-110); CREATININE 0.7 mg/dL (0.7-1.3); GLOMERULAR FILTRATION RATE > 60; GLUCOSE 91 mg/dL (70-100); POTASSIUM 4.1 mEq/L (3.5-5.2); SODIUM 133 mEq/L (134-144)
[2017-05-06] MEDS: ONDANSETRON 4 MG/2 ML VIAL IVP PRN ×2 (08:51→18:07)
[2017-05-06] MEDS: ERTAPENEM 1 GM in NS 100 ML IV SCH (08:51)
[2017-05-06] MEDS: ENOXAPARIN 40 MG/0.4 ML SYR SC SCH (09:14)
[2017-05-06] MEDS: SENNOSIDES/DOCUSATE SODIUM TAB PO SCH ×2 (09:15→20:48)
[2017-05-06] MEDS ORDERED: ONDANSETRON 4 MG/2 ML VIAL IVP PRN (09:26)
--- NOTE | 2017-05-06 10:09 | SOAPPROG ---
SOAP Progress Note Assessment/Plan: Assessment: # 1 BRAF mutated melanoma: even though this is not a V600E and there is an associated NRAS mutation i think it would be reasonable a trial of dabrafenib and trametinib. The doses are 150 mg BID and 2 mg Q Day respectively. The paperwork for assistance in obtaining the drugs is in process. #2. Pain control: doing a little better. #3. Nausea - probably multifactorial - tumor/pain/pain meds/blood in GI tract Plan: - add dexamethasone for nausea - Start dabrafinib/trametinib when available - continue supportive care - not ready for discharge at this time. Subjective: Nauseated. Pain 5-7/10. Constipated Objective: Vital Signs Temp Pulse Resp BP Pulse Ox 36.9 C 107 H 16 139/94 H 98 05/06/17 08:00 05/06/17 08:00 05/06/17 08:00 05/06/17 08:00 05/06/17 08:00 Laboratory Results 05/06/17 07:00 05/06/17 07:00 05/04/17 05/05/17 05/06/17 23:59 23:59 23:59 Intake Total 2000 550 500 Output Total 450 275 Balance 1550 275 500 PT 14.8 SEC (12.0-15.0) 05/04/17 00:00 INR 1.16 (0.83-1.16) 05/04/17 00:00 Physical Exam - Physical Exam General Appearance: moderate distress Neck: other (Large fungating tumor L SC fossa) Respiratory: lungs clear Cardiac/Chest: regular rate, rhythm Abdomen: soft, other (mild tenderness R abdomen) Lymphatic: other (L SC fungating/bleeding mass) ICD10 Worksheet Patient Problems: Problems Problem Status Onset Large bowel obstruction Acute Melanoma Acute Palliative care encounter Acute
--- NOTE | 2017-05-06 10:09 | HOSPPROG ---
Hospitalist Progress Note Assessment/Plan: #Metastatic melanoma: plan for dabrafenib, trametinib. Medicaid approved #Acute abdominal pain: Dr. Zambrano evaluated. Unclear if truly LBO or rather tumor burden. Will treat 7 days abx given initial presentation. Suspect due to tumor burden #Acute on chronic pain: improved with addition of Fentanyl patch. PRN IV Dilaudid #Nausea: Increase Zofran to 8mg, add Dex. If not effective, can try Ativan #Neck mass: wound care assisting with dressings #Goals: [facility] hospice evaluated 05/04. Has opted for oral chemo #DVT ppx: Lovenox #Diet: ADAT. If not taking in PO, may consider TFs or TPN #Disp: warrants inpt care with acute pain requiring IV opioids, antiemetics Time spent on visit: 40 min: spent counseling patient on pain/nausea management and d/w Dr. Mendoza Subjective: very nauseated Objective: Vital Signs Temp Pulse Resp BP Pulse Ox 36.9 C 107 H 16 139/94 H 98 05/06/17 08:00 05/06/17 08:00 05/06/17 08:00 05/06/17 08:00 05/06/17 08:00 Laboratory Results 05/06/17 07:00 05/06/17 07:00 05/05/17 05/06/17 05/07/17 05:59 05:59 05:59 Intake Total 1050 Output Total 625 Balance -625 1050 PT 14.8 SEC (12.0-15.0) 05/04/17 00:00 INR 1.16 (0.83-1.16) 05/04/17 00:00 - Physical Exam Constitutional: no apparent distress, uncomfortable Ears, Nose, Mouth, Throat: moist mucous membranes Cardiovascular: regular rate and rhythym Respiratory: no respiratory distress, no rales or rhonchi Gastrointestinal: normoactive bowel sounds, tenderness (RUQ TTP. ), No guarding , No rebound Genitourinary: no bladder fullness Skin: warm Musculoskeletal: full muscle strength, other (left neck/shoulder tumor with necrosis, serosang drainage) Neurologic: AAOx3, CN II-XII Intact Psychiatric: interacting appropriately ICD10 Worksheet Patient Problems: Problems Problem Status Onset Large bowel obstruction Acute Melanoma Acute Palliative care encounter Acute
[2017-05-06] MEDS: DEXAMETHASONE 10 MG/ML VIAL IVP SCH ×2 (10:24→20:45)
[2017-05-06] MEDS: FAMOTIDINE 20 MG/NACL 50 ML IV SCH ×2 (10:32→20:46)
--- NOTE | 2017-05-06 10:35 | SOAPPROG ---
SOAP Progress Note Assessment/Plan: Assessment: RLQ pain minimal. new nausea and vomiting since last mahi. mult small bm and flatus persists. appetite less today. awaiting meds to start. afebrile. comfortable. abd soft, nondistended. no RLQ tenderness. no appreciable mass. wbc 10 (unchanged). RLQ pain - low clinical suspicion for appy - would complete empiric ABX given initial presentation. ongoing large abdominal and retroperitoneal tumor burden likely accounting for gut dysmotility /ileus. continued supportive care. anti-emetics. nutrition will be extremely important. if unable to tolerate po, may need to consider TPN if moving full steam ahead with treatment. will continue to follow with you. care plan discussed with patient and s.o. Plan: 05/04/17 09:45 05/05/17 18:55 05/06/17 10:31 Objective: Vital Signs Temp Pulse Resp BP Pulse Ox 36.9 C 107 H 16 139/94 H 98 05/06/17 08:00 05/06/17 08:00 05/06/17 08:00 05/06/17 08:00 05/06/17 08:00 Laboratory Results 05/06/17 07:00 05/06/17 07:00 05/05/17 05/06/17 05/07/17 05:59 05:59 05:59 Intake Total 1050 Output Total 625 Balance -625 1050 PT 14.8 SEC (12.0-15.0) 05/04/17 00:00 INR 1.16 (0.83-1.16) 05/04/17 00:00 ICD10 Worksheet Patient Problems: Problems Problem Status Onset Large bowel obstruction Acute Melanoma Acute Palliative care encounter Acute
--- NOTE | 2017-05-06 17:39 | SOAPPROG ---
SOAP Progress Note Assessment/Plan: Assessment: Patient is 36 yr old with melanoma. He has a visible, painful tumor on his L trapezius causing fascial pain of neck, mid back, L arm primarily in his bicep, and clavicle pain. He has R lower quadrant pain. I was told by the nurse this is most likely from metastasis to the liver. He also has L lower quadrant pain, most likely kidney pain. Patient feels acupuncture treatment yesterday helped encourage bowel movement. This decreased his abdominal pain. In general, he has severe nausea and feels like vomiting. His pain is difficult to control. Treatment: Auricular: [place] Acupuncture (BFA), also called "Rapid Acupuncture". Five points, bilaterally inserted for the affect on the RESEARCH TEST ENGINE OPERATOR and pain and nausea reduction. Cingular gyrus, thalamus, omega 2, point zero, maria men Right Side: PC [address] meridian, relax the chest, reduce nausea DOLLY 7 Balance the BL meridian, reduce neck and shoulder pain in flexion and extension, open the throat HT 7 Calm the maria, reduce stress and anxiety, Balance the GB meridian and reduce pain in sidebending. Relax the trapezius and occiput. ST 36 Build Qi (energy) and blood. Reduce nausea. ST 37, 38, 39 He Sea point of SI and LI meridians. Move the bowels. ST 41 Image of the shoulder. Balance LI meridian. Relax clavicle and reduce anterior shoulder pain. ST [address] meridian. Reduce large intestine and stomach pain. Reduce nause. Relax clavicle and reduce anterior shoulder pain. BL 62 Balance SI and BL meridian. Reduce scapular and shoulder pain. BL 65 Balance SI and BL meridian. Reduce scapular and shoulder pain. Radha point of BL meridian. Reduce pain. GB 34 Empirical point to relax tendons. GB 40, 41 Master point of [place] (belt meridian). Relax waist, and occiput ( image). Reduce side bending pain of neck, shoulder, and hip. Left Side: Ling Gu Extra point to treat low back pain. Balance ST meridian. Da Riddhi Extra point to treat low back pain. Balance ST meridian. SI 3 Master point to relax the spine. Balance BL meridian. Improve ROM in flexion and extension. Relax shouler. SI 4 Image of occiput. Balance the BL meridian. Decrease pain in flexion and extension. LI 10 Upper He Sea of the stomach. Balance ST meridian. Move the bowels. Relax the ST. SP 3 Tonification point for SP. Encourage assimilation of food, fluid, and nourishment. Balance ST meridian. Reduce clavicle and SCM pain. SP 4 Master point of [place] (reproductive organs). Relax the lower sukhwinder. Balance ST meridian. SP 6 Meeting point of the three yin: LR, KI, SP. Reduce pain in lower sukhwinder ( reproductive organs). SP 9 x 2 a Drain damp. Balance the ST meridian. Reduce nausea. LR 3 Relax the scapula. Move the blood. Balance the GB meridian. Reduce stress and anxiety. KI 3, 10 Balance the BL meridian. Relax the back. Support/tonify the Raysa. DU 20, 21 Decrease abdominal pain. Calm the maria. Reduce stress and anxiety. [place] retained for one hour. Patient fell asleep during treatment. Plan: Acupuncture to be requested on an as needed basis. It is always easier to manage pain than to try and get ahead of pain. Consistent treatments a few times per week will make the patient more comfortable. 05/06/17 17:18 Objective: Vital Signs Temp Pulse Resp BP Pulse Ox 36.9 C 107 H 16 139/94 H 98 05/06/17 09:15 05/06/17 09:15 05/06/17 09:15 05/06/17 09:15 05/06/17 09:15 Laboratory Results 05/06/17 07:00 05/06/17 07:00 05/05/17 05/06/17 05/07/17 05:59 05:59 05:59 Intake Total 1050 Output Total 625 Balance -625 1050 PT 14.8 SEC (12.0-15.0) 05/04/17 00:00 INR 1.16 (0.83-1.16) 05/04/17 00:00 ICD10 Worksheet Patient Problems: Problems Problem Status Onset Large bowel obstruction Acute Melanoma Acute Palliative care encounter Acute
[2017-05-07] MEDS: LORazepam 2 MG/ML INJ IVP PRN ×2 (01:54→22:02)
--- NOTE | 2017-05-07 09:05 | HOSPPROG ---
Hospitalist Progress Note Assessment/Plan: #Metastatic melanoma: plan for dabrafenib, trametinib. Medicaid approved #Acute abdominal pain: much improved. Having small BMs. Suspect due tumor burden rather than obstruction. Day 4 Ertapenem given possible appendicitis ( not visualized on CT) #Acute on chronic pain: improved with addition of Fentanyl patch. PRN IV Dilaudid #Nausea: improved with Dex and Ativan #Neck mass: wound care assisting with dressings #Leukocytosis: due to steroids, afebrile #Goals: Po hospice evaluated 05/04. Has opted for oral chemo #DVT ppx: Lovenox #Diet: ADAT. Trying to eat today, may need artificial feeding if not eating enough. Calorie count #Disp: warrants inpt care with acute pain requiring IV opioids, antiemetics Subjective: pain and nausea improved. having small BMs Objective: Vital Signs Temp Pulse Resp BP Pulse Ox 37.3 C 93 16 121/84 H 93 05/06/17 19:42 05/06/17 19:42 05/06/17 19:42 05/06/17 19:42 05/06/17 19:42 Laboratory Results 05/06/17 07:00 05/06/17 07:00 05/06/17 05/07/17 05/08/17 05:59 05:59 05:59 Intake Total 1050 2500 Balance 1050 2500 PT 14.8 SEC (12.0-15.0) 05/04/17 00:00 INR 1.16 (0.83-1.16) 05/04/17 00:00 - Time Spent With Patient Time Spent with Patient: greater than 35 minutes Time Spent with Patient: Greater than 35 minutes spent on this patients care, greater than 50% of time spent counseling, educating, and coordinating care regarding the above mentioned plan. - Physical Exam Constitutional: other (thin, NAD, sleeping) Eyes: PERRL Ears, Nose, Mouth, Throat: moist mucous membranes Cardiovascular: regular rate and rhythym, no murmur, rub, or gallop Respiratory: no respiratory distress, no rales or rhonchi Gastrointestinal: normoactive bowel sounds, soft, non-tender abdomen, No guarding, No rebound Genitourinary: no bladder fullness Skin: warm Musculoskeletal: full muscle strength, other (large left neck/shoulder mass dressed) Neurologic: AAOx3, CN II-XII Intact Psychiatric: interacting appropriately, flat affect ICD10 Worksheet Patient Problems: Problems Problem Status Onset Large bowel obstruction Acute Melanoma Acute Palliative care encounter Acute
[2017-05-07] MEDS: FAMOTIDINE 20 MG/NACL 50 ML IV SCH ×2 (09:51→20:02)
[2017-05-07] MEDS: ERTAPENEM 1 GM in NS 100 ML IV SCH (09:52)
[2017-05-07] MEDS: ONDANSETRON 4 MG/2 ML VIAL IVP PRN ×2 (09:53→19:07)
[2017-05-07] MEDS: DEXAMETHASONE 10 MG/ML VIAL IVP SCH ×2 (09:53→20:03)
[2017-05-07] MEDS: SENNOSIDES/DOCUSATE SODIUM TAB PO SCH ×2 (09:55→20:05)
[2017-05-07] MEDS: ENOXAPARIN 40 MG/0.4 ML SYR SC SCH (09:56)
[2017-05-07 10:39] LABS: HEMATOCRIT 24.9 % (40.0-51.0); HEMOGLOBIN 8.6 g/dL (13.7-17.5); MEAN CELL HEMOGLOBIN 29.9 pg (27.9-34.1); MEAN CELL HEMOGLOBIN CONCENTR. 34.5 g/dL (32.4-36.7); MEAN CELL VOLUME 86.5 fL (81.5-99.8); RED BLOOD CELL COUNT 2.88 10^6/uL (4.40-6.38); RED CELL DISTRIBUTION WIDTH 11.7 % (11.5-15.2)
[2017-05-07] MEDS: HYDROmorphONE/DILAUDID 1 MG/ML SYR IVP PRN (10:41)
--- NOTE | 2017-05-07 11:02 | SOAPPROG ---
LILLI Progress Note Assessment/Plan: Assessment: # 1 BRAF mutated melanoma: even though this is not a V600E and there is an associated NRAS mutation i think it would be reasonable a trial of dabrafenib and trametinib. The doses are 150 mg BID and 2 mg Q Day respectively. The paperwork for assistance in obtaining the drugs is in process. I have asked the pharmacist to call daily for a status update #2. Pain control: improved with dexamethasone #3. Nausea - improved with dexamethasone Plan: - continue dex - Start dabrafinib/trametinib when available - continue supportive care - pt/ot eval - not ready for discharge at this time but closer than yesterday Subjective: Less nausea. Spontaneous smile. Says pain is under control. Objective: Vital Signs Temp Pulse Resp BP Pulse Ox 37.4 C 98 16 134/87 H 96 05/07/17 09:58 05/07/17 09:58 05/07/17 09:58 05/07/17 09:58 05/07/17 09:58 Laboratory Results 05/07/17 10:30 05/06/17 07:00 05/05/17 05/06/17 05/07/17 23:59 23:59 23:59 Intake Total 550 1500 1500 Output Total 275 Balance 275 1500 1500 PT 14.8 SEC (12.0-15.0) 05/04/17 00:00 INR 1.16 (0.83-1.16) 05/04/17 00:00 Physical Exam - Physical Exam General Appearance: alert, mild distress Respiratory: lungs clear Cardiac/Chest: regular rate, rhythm Abdomen: normal bowel sounds Lymphatic: other (no change in L SC lymph node) ICD10 Worksheet Patient Problems: Problems Problem Status Onset Large bowel obstruction Acute Melanoma Acute Palliative care encounter Acute
--- NOTE | 2017-05-07 11:41 | WOCRNPDOC ---
WOCRN Advanced Assessment Note - Skin Integrity Problem, Advanced Assess Left Upper Clavicle Tumor Dressing Type: ABD Pad, Silver Contact Layer (Acticoat 7 ) Dressing Description: Intact, Shadowed Exudate Amount: Moderate Exudate Color: Red Exudate Characteristic(s): Sanguinous Integumentary Issue Intervention: Dressing Changed Clau Wound Tissue: Erythema, Painful/Tender Clau Wound Swelling: Moderate Skin Integrity Problem Comment: Removed dressing and contact layer. Contact layer was strongly adhered. New tissue had grown into the Acticoat, and there was also quite a bit of blood that had dried and stuck to it. Care was taken to moisten and slowly peel off the primary dressing without disrupting the vasculature to minimize bleeing. Tumor was recovered with mepitel Ag+ x 2 units. Patient requested to try a different secondary dressing as ABD's were getting soaked and heavy overnight. The wound was covered with an Optilock dressing that was cut along 4 edges to help fold it over the wound as a trial. However wound RN is of the opinion that ABD's will work better for this patient' s wounds. Optilock was secured with medipore tape after applying skin prep to skin. Mariel ADAMS in room for care.
[2017-05-07 12:11] LABS: ANION GAP 10 mEq/L (8-16); CALCIUM 8.4 mg/dL (8.5-10.4); CARBON DIOXIDE 24 mEq/l (22-31); CHLORIDE 98 mEq/L (97-110); CREATININE 0.7 mg/dL (0.7-1.3); GLOMERULAR FILTRATION RATE > 60; GLUCOSE 84 mg/dL (70-100); POTASSIUM 4.8 mEq/L (3.5-5.2); SODIUM 132 mEq/L (134-144)
--- NOTE | 2017-05-07 13:42 | HOSPPROG ---
Hospitalist Progress Note Assessment/Plan: #Metastatic melanoma: plan for dabrafenib, trametinib. Medicaid approved #Acute abdominal pain: Dr. Zambrano evaluated. Suspect due tumor burden rather than obstruction. Day 4 Ertapenem given possible appendicitis (not visualized on CT ) #Acute on chronic pain: improved with addition of Fentanyl patch. PRN IV Dilaudid #Nausea: Increase Zofran to 8mg, add Dex. If not effective, can try Ativan #Neck mass: wound care assisting with dressings #Goals: Po hospice evaluated 05/04. Has opted for oral chemo #DVT ppx: Lovenox #Diet: ADAT. If not taking in PO, may consider TFs or TPN #Disp: warrants inpt care with acute pain requiring IV opioids, antiemetics Subjective: nausea and pain better. Having small BMs Objective: Vital Signs Temp Pulse Resp BP Pulse Ox 37.4 C 98 16 134/87 H 96 05/07/17 09:58 05/07/17 09:58 05/07/17 09:58 05/07/17 09:58 05/07/17 09:58 Laboratory Results 05/07/17 10:30 05/07/17 11:38 05/06/17 05/07/17 05/08/17 05:59 05:59 05:59 Intake Total 1050 2500 Balance 1050 2500 PT 14.8 SEC (12.0-15.0) 05/04/17 00:00 INR 1.16 (0.83-1.16) 05/04/17 00:00 - Physical Exam Constitutional: no apparent distress, other (thin, laying in bed, NAD) Eyes: PERRL Ears, Nose, Mouth, Throat: moist mucous membranes, hearing normal Cardiovascular: regular rate and rhythym, no murmur, rub, or gallop Respiratory: no respiratory distress, no rales or rhonchi Gastrointestinal: normoactive bowel sounds, soft, non-tender abdomen Genitourinary: no bladder fullness Skin: warm Musculoskeletal: other (large left neck/shoulder mass dressed) Neurologic: AAOx3, CN II-XII Intact Psychiatric: interacting appropriately, flat affect ICD10 Worksheet Patient Problems: Problems Problem Status Onset Large bowel obstruction Acute Melanoma Acute Palliative care encounter Acute
[2017-05-07] MEDS: fentaNYL 25 MCG PATCH TD SCH (14:28)
[2017-05-07] MEDS: ONDANSETRON DISINTEGRATING 4 MG TAB PO PRN ×2 (15:04→22:03)
[2017-05-07] MEDS: oxyCODONE IR 5 MG TAB PO PRN ×2 (16:23→22:03)
[2017-05-07] MEDS: NS 1,000 ML IV SCH (22:00)
[2017-05-08] MEDS: ONDANSETRON 4 MG/2 ML VIAL IVP PRN ×2 (06:33→15:50)
[2017-05-08] MEDS: NS 1,000 ML IV SCH ×3 (06:33→21:29)
--- NOTE | 2017-05-08 06:40 | SOAPPROG ---
LILLI Progress Note Assessment/Plan: Assessment: # 1 BRAF mutated melanoma: even though this is not a V600E and there is an associated NRAS mutation I think it would be reasonable to begin dabrafenib and trametinib. He will not be able to recieve them till next week due to holiday and the [employer] drug process. the doses are 150 mg BID and 2 mg Q Day respectively. The SE include fever rash GI. They will need Medicaid and or indigent drug replacement. Bemetinib is not available. #2. Pain control: doing a little better. #3. Nausea: wose today. Trial of olanzapine. No VIVEROS Plan: 05/05/17 08:24 05/08/17 07:22 Subjective: [address] Mendoza's with advanced metastatic melanoma not treated now presenting with mutiple symtpoms of rapidly progressive disease. Objective: Vital Signs Temp Pulse Resp BP Pulse Ox 36.7 C 90 16 125/81 H 94 05/07/17 20:06 05/07/17 20:06 05/07/17 20:06 05/07/17 20:06 05/07/17 20:06 Laboratory Results 05/07/17 10:30 05/07/17 11:38 05/07/17 05/08/17 05/09/17 05:59 05:59 05:59 Intake Total 2500 1150 Output Total 850 Balance 2500 300 PT 14.8 SEC (12.0-15.0) 05/04/17 00:00 INR 1.16 (0.83-1.16) 05/04/17 00:00 ICD10 Worksheet Patient Problems: Problems Problem Status Onset Large bowel obstruction Acute Melanoma Acute Palliative care encounter Acute
[2017-05-08] MEDS ORDERED: OLANZapine 2.5 MG TAB PO PRN (07:26)
[2017-05-08] MEDS ORDERED: OLANZapine 2.5 MG TAB PO ONE (07:26)
[2017-05-08] MEDS: DEXAMETHASONE 10 MG/ML VIAL IVP SCH ×2 (08:13→21:22)
[2017-05-08] MEDS: oxyCODONE IR 5 MG TAB PO PRN ×5 (08:13→22:32)
[2017-05-08] MEDS: ENOXAPARIN 40 MG/0.4 ML SYR SC SCH (08:14)
[2017-05-08] MEDS: SENNOSIDES/DOCUSATE SODIUM TAB PO SCH ×2 (08:15→21:22)
[2017-05-08] MEDS: FAMOTIDINE 20 MG/NACL 50 ML IV SCH ×2 (08:15→21:22)
--- NOTE | 2017-05-08 11:06 | HOSPPROG ---
Hospitalist Progress Note Assessment/Plan: #Metastatic melanoma: plan for dabrafenib, trametinib. Medicaid approved, awaiting meds #Hypovolemic hyponatremia: not eating much. Add IV NS #Acute abdominal pain: minimal now. Tolerating foods like rice. Having small BMs. Suspect due tumor burden rather than obstruction. Day 4 Ertapenem given possible appendicitis (not visualized on CT) #Acute on chronic pain: improved with addition of Fentanyl patch. Change to PO opioids #Nausea: worse today. Add Zyprexa. Cont Dex, Ativan #Neck mass: wound care assisting with dressings #Leukocytosis: due to steroids, afebrile #Goals: Po hospice evaluated 05/04. Has opted for oral chemo #DVT ppx: Lovenox #Diet: regular #Disp: warrants inpt care with acute pain requiring IV opioids, antiemetics Subjective: large emesis this morning Objective: Vital Signs Temp Pulse Resp BP Pulse Ox 36.7 C 94 16 123/92 H 94 05/08/17 05:59 05/08/17 05:59 05/08/17 05:59 05/08/17 05:59 05/08/17 05:59 Laboratory Results 05/07/17 10:30 05/07/17 11:38 05/07/17 05/08/17 05/09/17 05:59 05:59 05:59 Intake Total 2500 1150 Output Total 850 Balance 2500 300 PT 14.8 SEC (12.0-15.0) 05/04/17 00:00 INR 1.16 (0.83-1.16) 05/04/17 00:00 - Physical Exam Constitutional: other (thin, appears brighter today) Ears, Nose, Mouth, Throat: moist mucous membranes Cardiovascular: regular rate and rhythym Respiratory: no respiratory distress Gastrointestinal: normoactive bowel sounds (quiet BS), soft, non-tender abdomen Genitourinary: no bladder fullness Skin: warm Musculoskeletal: other (large left neck/shoulder mass with necrosis, bleeding on dressing) Neurologic: AAOx3, CN II-XII Intact Psychiatric: interacting appropriately ICD10 Worksheet Patient Problems: Problems Problem Status Onset Large bowel obstruction Acute Melanoma Acute Palliative care encounter Acute
[2017-05-08 13:21] LABS: ANION GAP 7 mEq/L (8-16); CALCIUM 8.8 mg/dL (8.5-10.4); CARBON DIOXIDE 28 mEq/l (22-31); CHLORIDE 95 mEq/L (97-110); CREATININE 0.8 mg/dL (0.7-1.3); GLOMERULAR FILTRATION RATE > 60; GLUCOSE 102 mg/dL (70-100); POTASSIUM 4.5 mEq/L (3.5-5.2); SODIUM 130 mEq/L (134-144)
[2017-05-08] MEDS: ERTAPENEM 1 GM in NS 100 ML IV SCH (13:58)
--- NOTE | 2017-05-08 14:54 | SOAPPROG ---
SOAP Progress Note Assessment/Plan: Assessment: patient off floor. will return tomorrow. RLQ pain minimal. new nausea and vomiting since last mahi. mult small bm and flatus persists. appetite less today. awaiting meds to start. afebrile. comfortable. abd soft, nondistended. no RLQ tenderness. no appreciable mass. wbc 10 (unchanged). RLQ pain - low clinical suspicion for appy - would complete empiric ABX given initial presentation. ongoing large abdominal and retroperitoneal tumor burden likely accounting for gut dysmotility/ileus. continued supportive care. anti-emetics. nutrition will be extremely important. if unable to tolerate po, may need to consider TPN if moving full steam ahead with treatment. will continue to follow with you. care plan discussed with patient and s.o. Plan: 05/04/17 09:45 05/05/17 18:55 05/06/17 10:31 05/08/17 14:54 Objective: Vital Signs Temp Pulse Resp BP Pulse Ox 36.7 C 94 16 123/92 H 94 05/08/17 05:59 05/08/17 05:59 05/08/17 05:59 05/08/17 05:59 05/08/17 05:59 Laboratory Results 05/07/17 10:30 05/08/17 12:51 05/07/17 05/08/17 05/09/17 05:59 05:59 05:59 Intake Total 2500 1150 Output Total 850 Balance 2500 300 PT 14.8 SEC (12.0-15.0) 05/04/17 00:00 INR 1.16 (0.83-1.16) 05/04/17 00:00 ICD10 Worksheet Patient Problems: Problems Problem Status Onset Large bowel obstruction Acute Melanoma Acute Palliative care encounter Acute
[2017-05-08] MEDS: LORazepam 2 MG/ML INJ IVP PRN (22:33)
[2017-05-09] MEDS: LORazepam 2 MG/ML INJ IVP PRN ×2 (01:54→21:53)
[2017-05-09] MEDS: ONDANSETRON 4 MG/2 ML VIAL IVP PRN ×4 (01:54→21:22)
[2017-05-09] MEDS: oxyCODONE IR 5 MG TAB PO PRN ×2 (04:50→09:31)
[2017-05-09] MEDS: DEXAMETHASONE 10 MG/ML VIAL IVP SCH ×2 (09:25→21:22)
[2017-05-09] MEDS: ENOXAPARIN 40 MG/0.4 ML SYR SC SCH (09:26)
[2017-05-09] MEDS: FAMOTIDINE 20 MG/NACL 50 ML IV SCH ×2 (09:26→21:22)
[2017-05-09] MEDS: ERTAPENEM 1 GM in NS 100 ML IV SCH (09:26)
[2017-05-09] MEDS: SENNOSIDES/DOCUSATE SODIUM TAB PO SCH (09:27)
--- NOTE | 2017-05-09 10:41 | SOAPPROG ---
SOAP Progress Note Assessment/Plan: Assessment: 1. Melanoma, metastatic to lung and liver 2. 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 Efficacy uncertain given the rare BRAF mutation, but it still remains the best Rx option given the diagnosis and rapid disease progression 25 min spent w/ pt and in coordination of care. 05/09/17 10:39 Subjective: persistent pain. Objective: exam: thiin, NAD L supraclav - dressing in place over mass Lungs CTAB CV RRR no mGr Abd: +BS NT ND Ext: no edema Neuro: a+ox3. Vital Signs Temp Pulse Resp BP Pulse Ox 36.7 C 101 H 18 126/85 H 95 05/09/17 08:00 05/09/17 08:00 05/09/17 08:00 05/09/17 08:00 05/09/17 08:00 Laboratory Results 05/07/17 10:30 05/08/17 12:51 05/08/17 05/09/17 05/10/17 05:59 05:59 05:59 Intake Total 1150 2779 Output Total 850 350 Balance 300 2779 -350 PT 14.8 SEC (12.0-15.0) 05/04/17 00:00 INR 1.16 (0.83-1.16) 05/04/17 00:00 ICD10 Worksheet Patient Problems: Problems Problem Status Onset Large bowel obstruction Acute Melanoma Acute Palliative care encounter Acute
[2017-05-09] MEDS ORDERED: HYDROmorphONE/DILAUDID 1 MG/ML SYR IVP PRN (11:29)
[2017-05-09] MEDS: fentaNYL 25 MCG PATCH TD SCH (11:46)
[2017-05-09] MEDS: HYDROmorphONE/DILAUDID 1 MG/ML SYR IVP PRN ×2 (11:47→15:33)
--- NOTE | 2017-05-09 14:01 | HOSPPROG ---
Hospitalist Progress Note Assessment/Plan: # Metastatic melanoma- plan for dabrafenib, trametinib. Medicaid approved, awaiting meds Neck mass remains very painful- wound care assisting and treatment - up titrating fentanyl patch today - adding p.r.n. IV Dilaudid - continue p.o. oxycodone p.r.n. - continue wound care - cont IV Decadron BID for pain control # Presumed Hypovolemic hyponatremia- not eating much- added continuous IV NS sodium dropping daily 134-> 130 - send urine studies - cont IVF for now # Acute abdominal pain- CT abd (personally reviewed and interpreted) multiple liver and renal related metastases Tolerating foods like rice- Having small BMs -Suspect due tumor burden rather than obstruction. - Day 01/11 Ertapenem given possible appendicitis (not visualized on CT) # Acute Nausea- stable today - cont Zyprexa - Cont steroids - cont prn Ativan # Leukocytosis- presumed due to steroids, afebrile 18-> 13 this am Oxygen saturations 95% on room air - continue to monitor # protein calorie malnutrition- patient with minimal P.O. intake times many weeks with severe weight loss since diagnosis- > 20# loss in past months - dietary consultation # Goals: Po hospice evaluated 05/04. Has opted for oral chemo # DVT ppx: Lovenox # Diet: regular # Dispo- greater than 2 midnights as patient with severe acute pain requiring IV opioids, antiemetics I have discussed case with Dr. Sheldon we will continue aggressive pain management protocol today anticipating oral chemotherapy next week Subjective: Pain is terribly controlled Objective: Vital Signs Temp Pulse Resp BP Pulse Ox 36.7 C 101 H 18 126/85 H 95 05/09/17 08:00 05/09/17 08:00 05/09/17 08:00 05/09/17 08:00 05/09/17 08:00 Laboratory Results 05/07/17 10:30 05/08/17 12:51 05/08/17 05/09/17 05/10/17 05:59 05:59 05:59 Intake Total 1150 2779 Output Total 850 350 Balance 300 2779 -350 PT 14.8 SEC (12.0-15.0) 05/04/17 00:00 INR 1.16 (0.83-1.16) 05/04/17 00:00 - Physical Exam Constitutional: cachectic Eyes: anicteric sclera Ears, Nose, Mouth, Throat: dry mucous membranes Cardiovascular: regular rate and rhythym Respiratory: no respiratory distress Gastrointestinal: normoactive bowel sounds, soft, non-tender abdomen Genitourinary: no bladder fullness Skin: warm Musculoskeletal: No asymmetric calves Neurologic: AAOx3 Psychiatric: interacting appropriately, depressed Lymph, Heme, Immunologic: no cervical LAD ICD10 Worksheet Patient Problems: Problems Problem Status Onset Large bowel obstruction Acute Melanoma Acute Palliative care encounter Acute
[2017-05-09] MEDS: HYDROmorphONE/DILAUDID 2 MG TAB PO PRN ×2 (17:17→21:53)
[2017-05-10] MEDS: SENNOSIDES/DOCUSATE SODIUM TAB PO SCH ×3 (00:06→20:37)
[2017-05-10] MEDS: HYDROmorphONE/DILAUDID 2 MG TAB PO PRN ×4 (01:53→23:56)
[2017-05-10] MEDS: LORazepam 2 MG/ML INJ IVP PRN ×2 (01:53→05:53)
[2017-05-10 05:54] LABS: ANION GAP 10 mEq/L (8-16); CALCIUM 8.5 mg/dL (8.5-10.4); CARBON DIOXIDE 26 mEq/l (22-31); CHLORIDE 95 mEq/L (97-110); CREATININE 0.7 mg/dL (0.7-1.3); GLOMERULAR FILTRATION RATE > 60; GLUCOSE 115 mg/dL (70-100); POTASSIUM 4.8 mEq/L (3.5-5.2); SODIUM 131 mEq/L (134-144)
[2017-05-10] MEDS: NS 1,000 ML IV SCH (06:36)
[2017-05-10] MEDS: ENOXAPARIN 40 MG/0.4 ML SYR SC SCH (09:24)
[2017-05-10] MEDS: DEXAMETHASONE 10 MG/ML VIAL IVP SCH ×2 (09:46→20:37)
[2017-05-10] MEDS: FAMOTIDINE 20 MG/NACL 50 ML IV SCH ×2 (09:46→20:39)
[2017-05-10] MEDS: ERTAPENEM 1 GM in NS 100 ML IV SCH (09:47)
[2017-05-10] MEDS: ONDANSETRON 4 MG/2 ML VIAL IVP PRN ×2 (10:42→17:42)
--- NOTE | 2017-05-10 14:51 | HOSPPROG ---
Hospitalist Progress Note Assessment/Plan: # Metastatic melanoma- plan for dabrafenib, trametinib. Medicaid approved, awaiting meds Neck mass remains very painful- wound care assisting and treatment - cont fentanyl patch - continue p.r.n. IV Dilaudid - continue p.o. dilaudid p.r.n. - continue wound care - cont IV Decadron BID for pain control # Presumed Hypovolemic hyponatremia- not eating much- receiving continuous IV NS - urine sodium elevated - suspect underlying SIADH sodium dropping daily 134-> 130 -> 131 - do not want to fluid restrict as pt intake already quite poor - encourage PO intake in attempt to wean off IVF # Acute abdominal pain- CT abd (personally reviewed and interpreted) multiple liver and renal related metastases - no clear transition point Tolerating foods like rice- Having small BMs -using green coffee enemas - Day 02/11 Ertapenem given possible appendicitis (not visualized on CT) # Acute Nausea- stable today - cont Zyprexa - Cont steroids - cont prn Ativan # Leukocytosis- presumed due to steroids, afebrile 18-> 13 this am Oxygen saturations 95% on room air - continue to monitor # protein calorie malnutrition- BMI 17 - has lost 11kg since admission - dietary consultation # Goals: Po hospice evaluated 05/04. Has opted for oral chemo # DVT ppx: Lovenox # Diet: regular # Dispo- greater than 2 midnights as patient with severe acute pain requiring IV opioids, antiemetics I have discussed case with Dr. Sheldon anticipating oral chemo in the next 48 hours Subjective: feels groggy Objective: Vital Signs Temp Pulse Resp BP Pulse Ox 36.6 C 111 H 18 121/85 H 93 05/10/17 08:00 05/10/17 08:00 05/10/17 08:00 05/10/17 08:00 05/10/17 08:00 Laboratory Results 05/07/17 10:30 05/10/17 05:08 05/09/17 05/10/17 05/11/17 05:59 05:59 05:59 Intake Total 2779 750 Output Total 1850 950 Balance 2779 -1100 -950 PT 14.8 SEC (12.0-15.0) 05/04/17 00:00 INR 1.16 (0.83-1.16) 05/04/17 00:00 - Physical Exam Constitutional: cachectic Eyes: anicteric sclera Ears, Nose, Mouth, Throat: moist mucous membranes Cardiovascular: regular rate and rhythym Respiratory: no respiratory distress, no rales or rhonchi Gastrointestinal: normoactive bowel sounds Genitourinary: no bladder fullness Skin: warm Musculoskeletal: No asymmetric calves Neurologic: AAOx3 Psychiatric: interacting appropriately Lymph, Heme, Immunologic: no cervical LAD ICD10 Worksheet Patient Problems: Problems Problem Status Onset Large bowel obstruction Acute Melanoma Acute Palliative care encounter Acute
--- NOTE | 2017-05-10 18:28 | ASMTCMCOM ---
CM Note CM Note Notes: Met with pt and girlfriend Akcortney and pt for distress screening and to discuss other DC needs. Pt could be ready for DC tomorrow. He will have [facility] and [facility] palliative. Submitted a ULTC 100 so that can pt can have HCBS services in the home. LM for [employer] to fill out LTC mcaid betito. GF also requestd hospital bed and WC. Gave pt loan closet list ofr WC. [facility] may not be open until Thursday. C/M will submit paperwork on Thursday or Thursday. Pt will also need wound care supplies and it is uncertain if HC agency provides. gave pt info on [facility] for low cost med. supplies. Finally pt's distress screen was high at 8. Discussed pt's issues with him. Recommended a patient financial coordinator referral b/c they will have the time to sit with pt and discuss his concerns whcih include spiritual, anxiety and fear and concerns about hsi young children. Did suggest to pt that he reach out to family members that can help bring his children to [place] and also try to skype. C/M will continue to follow. Date Signed: 05/10/2017 06:27 PM Electronically Signed By:Yaneli Barragan
[2017-05-11] MEDS: DEXAMETHASONE 10 MG/ML VIAL IVP SCH ×2 (09:09→19:51)
[2017-05-11] MEDS: ONDANSETRON 4 MG/2 ML VIAL IVP PRN ×2 (09:09→16:19)
[2017-05-11] MEDS: ENOXAPARIN 40 MG/0.4 ML SYR SC SCH (09:10)
[2017-05-11] MEDS: NS 1,000 ML IV SCH (09:10)
[2017-05-11] MEDS: FAMOTIDINE 20 MG/NACL 50 ML IV SCH ×2 (09:10→19:51)
[2017-05-11 09:29] LABS: HEMATOCRIT 22.6 % (40.0-51.0); HEMOGLOBIN 7.7 g/dL (13.7-17.5); MEAN CELL HEMOGLOBIN 29.7 pg (27.9-34.1); MEAN CELL HEMOGLOBIN CONCENTR. 34.1 g/dL (32.4-36.7); MEAN CELL VOLUME 87.3 fL (81.5-99.8); RED BLOOD CELL COUNT 2.59 10^6/uL (4.40-6.38); RED CELL DISTRIBUTION WIDTH 12.2 % (11.5-15.2)
[2017-05-11] MEDS: HYDROmorphONE/DILAUDID 2 MG TAB PO PRN ×2 (09:57→16:19)
[2017-05-11 10:12] LABS: ANION GAP 9 mEq/L (8-16); CALCIUM 8.6 mg/dL (8.5-10.4); CARBON DIOXIDE 27 mEq/l (22-31); CHLORIDE 94 mEq/L (97-110); CREATININE 0.8 mg/dL (0.7-1.3); GLOMERULAR FILTRATION RATE > 60; GLUCOSE 89 mg/dL (70-100); POTASSIUM 4.5 mEq/L (3.5-5.2); SODIUM 130 mEq/L (134-144)
[2017-05-11 11:00] LABS: % SATURATION 11 % (20-55); TOTAL IRON BINDING CAPACITY 208 ug/dL (260-490)
--- NOTE | 2017-05-11 11:24 | SOAPPROG ---
SOLE[facility]A Progress Note Assessment/Plan: Assessment: 1. Melanoma, metastatic to lung and liver 2. 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 Anemia Plan: - pt would like to go home. [facility] and home health arranged. His symptoms are well controlled if he sticks to taking narcotics and antiemetics on a scheduled basis. - dabrafenib/trametinib to be delivered to [facility] later this week - iron studies pending - if ferritin is <100, would suggest Fe deficiency. otherwise anemia likely due to chronic inflammation. - f/u with Dr. Viramontes later this week in clinic. Subjective: pain and nausea about the same. had a difficult night but feeling better now Objective: exam unchanged Vital Signs Temp Pulse Resp BP Pulse Ox 36.7 C 96 16 132/89 H 94 05/10/17 20:00 05/11/17 00:00 05/11/17 00:00 05/10/17 20:00 05/11/17 00:00 Laboratory Results 05/11/17 09:24 05/11/17 09:24 05/10/17 05/11/17 05/12/17 05:59 05:59 05:59 Intake Total 750 1200 Output Total 1850 1250 1750 Balance -1100 -50 -1750 PT 14.8 SEC (12.0-15.0) 05/04/17 00:00 INR 1.16 (0.83-1.16) 05/04/17 00:00 ICD10 Worksheet Patient Problems: Problems Problem Status Onset Large bowel obstruction Acute Melanoma Acute Palliative care encounter Acute
--- NOTE | 2017-05-11 12:30 | PDIAF ---
- Diagnosis Diagnosis: metastatic melanoma Code Status: Full Code - Medication Management Discharge Medications: Medications to Continue on Transfer Sennosides [Senokot] 1 each PO DAILY PRN 05/04/17 [Last Taken Unknown] Acetaminophen [Tylenol 325mg (*)] 650 mg PO Q4HRS PRN #0 tab 05/11/17 [Last Taken Unknown] Dexamethasone [Decadron 4 MG (*)] 4 mg PO BID #60 tab 05/11/17 [Last Taken Unknown] HYDROmorphone HCL [Dilaudid 2 mg (*)] 2 - 4 mg PO Q4HRS PRN #60 tab 05/11/17 [ Last Taken Unknown] LORazepam [Ativan] 0.5 mg PO TID PRN #45 tablet 05/11/17 [Last Taken Unknown] Ondansetron Odt [Zofran Odt 4 mg (*)] 8 mg PO Q4HRS PRN #45 tab 05/11/17 [Last Taken Unknown] Promethazine HCl 25 mg RC DAILY PRN #30 supp.rect 05/11/17 [Last Taken Unknown] fentaNYL [Duragesic 25 MCG Patch (*)] 50 mcg TD Q72H #15 patch 05/11/17 [Last Taken Unknown] Discharge Medications: Refer to the Discharge Home Medication list for PRN reason. - Orders Services needed: Home Care, Registered Nurse Home Care Face to Face: I certify that this patient was under my care and that I had the required [id number] encounter meeting the encounter requirements on the discharge day. My findings support the fact that the patient is homebound as defined in CMS Chapter 7 Medicare Benefits Manual 30.1.1, The condition of the patient is such that there exists a normal inability to leave home and consequently, leaving home would require a considerable and taxing effort. Diet Recommendation: no restrictions on diet Diet Texture: Regular Texture Diet - Follow Up Care Current Providers and Referrals: KRISTI ROSEN [Primary Care Provider] - As per Instructions
[2017-05-11] MEDS: HYDROmorphONE/DILAUDID 1 MG/ML SYR IVP PRN ×4 (13:45→22:37)
[2017-05-11] MEDS: SENNOSIDES/DOCUSATE SODIUM TAB PO SCH ×2 (14:15→19:54)
--- NOTE | 2017-05-11 15:29 | HOSPPROG ---
Hospitalist Progress Note Assessment/Plan: # Metastatic melanoma- plan for dabrafenib, trametinib. Medicaid approved, awaiting meds Neck mass remains very painful- wound care assisting and treatment - cont fentanyl patch - continue p.r.n. IV Dilaudid - continue p.o. dilaudid p.r.n. - continue wound care - cont IV Decadron BID for pain control - initially planning for dc but has had increased pain this afternoon- will transfuse and follow # Acute normocytic anemia - hgb 7.7 this am - hgb has been consistently dropping since admit - transfuse today # Presumed Hypovolemic hyponatremia- not eating much- receiving continuous IV NS - urine sodium elevated - suspect underlying SIADH sodium dropping daily 134-> 130 -> 131 - do not want to fluid restrict as pt intake already quite poor - encourage PO intake in attempt to wean off IVF # Acute abdominal pain- CT abd (personally reviewed and interpreted) multiple liver and renal related metastases - no clear transition point Tolerating foods like rice- Having small BMs -using green coffee enemas - Day 03/13 Ertapenem given possible appendicitis (not visualized on CT) # Acute Nausea- stable today - cont Zyprexa - Cont steroids - cont prn Ativan # Leukocytosis- presumed due to steroids, afebrile 18-> 15 this am Oxygen saturations 95% on room air - continue to monitor # protein calorie malnutrition- BMI 17 - has lost 11kg since admission - dietary consultation # Goals: Po hospice evaluated 05/04. Has opted for oral chemo # DVT ppx: Lovenox # Diet: regular # Dispo- greater than 2 midnights as patient with severe acute pain requiring IV opioids, antiemetics I have discussed case with RN - patient has taken a turn this afternoon - will keep this evening and transfuse Subjective: pain seems controlled with current regimen Objective: Vital Signs Temp Pulse Resp BP Pulse Ox 36.7 C 96 16 132/89 H 94 05/10/17 20:00 05/11/17 00:00 05/11/17 00:00 05/10/17 20:00 05/11/17 00:00 Laboratory Results 05/11/17 09:24 05/11/17 09:24 05/10/17 05/11/17 05/12/17 05:59 05:59 05:59 Intake Total 750 1200 Output Total 1850 1250 1750 Balance -1100 -50 -1750 PT 14.8 SEC (12.0-15.0) 05/04/17 00:00 INR 1.16 (0.83-1.16) 05/04/17 00:00 - Physical Exam Constitutional: chronically ill appearing, cachectic Eyes: anicteric sclera Ears, Nose, Mouth, Throat: dry mucous membranes Cardiovascular: regular rate and rhythym Respiratory: no respiratory distress, no rales or rhonchi Gastrointestinal: normoactive bowel sounds, tenderness Genitourinary: no bladder fullness Skin: warm Musculoskeletal: No asymmetric calves Neurologic: AAOx3 Psychiatric: interacting appropriately Lymph, Heme, Immunologic: no cervical LAD ICD10 Worksheet Patient Problems: Problems Problem Status Onset Large bowel obstruction Acute Melanoma Acute Palliative care encounter Acute
--- NOTE | 2017-05-11 15:40 | GDS ---
[f rep st] DISCHARGE SUMMARY DISCHARGE DIAGNOSES: Include: 1. Metastatic melanoma. 2. Severe pain secondary to metastatic melanoma. 3. Hyponatremia, suspect underlying syndrome of inappropriate diuretic hormone. 4. Acute nausea. 5. Severe protein-calorie malnutrition. HISTORY OF PRESENT ILLNESS: This is a 36-year-old male with a recently made diagnosis of metastatic melanoma, who presents with complaints of abdominal pain. For details of the patient's initial pre sentation, please see the History and Physical dated 05/04/2017. HOSPITAL COURSE BY ISSUE: 1. Abdominal pain: The patient had CT imaging of the abdomen that ruled out distinct small bowel o bstruction. Believe pain was likely related to tumor burden. The patient received fluid resuscitat ion, improved oral intake and output. He is requiring intermittent stool softeners and enemas to as sist in appropriate passage of stool. I believe we found a good balance between pain control and th e patient'S stooling pattern. The patient did complete a 7-day course for underlying peritonitis/co ncerns for possible appendicitis. On the day of disposition, pain is under adequate control and the patient is tolerating p.o. intake. 2. Severe protein-calorie malnutrition: Patient's BMI on the day of disposition is 17. His appeti te is greatly restricted secondary to his underlying malignancy and nausea. He is working to take i n high-calorie food and has received dietary counseling throughout his hospital stay. 3. Metastatic melanoma: Patient is planning for oral chemotherapy, which should initiate early s week. He will initiate these medications while at home and follow closely with [facility]. 4. Pain regimen philtrum during this hospital stay includes 50 mcg of fentanyl patches with p.r.n. p.o. Dilaudid. We have been using occasional Ativan, either for anxiety or nausea, and Zofran. Pat ient will continue taking twice a day dexamethasone to assist with pain control and nausea. MEDICATIONS AT THE TIME OF TRANSFER: Please reference the med rec printed on 05/11/2017. FOLLOWUP APPOINTMENTS: With [facility] for quick followup after initiation of p.o. chemotherapy. The pat ient will additionally be seen by Palliative Care at home. PENDING STUDIES: At the time of this dictation, are none. TIME SPENT: I spent greater than 30 minutes in the planning and coordination of this discharge. /[id number]/MODL
--- NOTE | 2017-05-11 15:58 | ASMTCMCOM ---
CM Note CM Note Notes: Plan had been for pt to discharge home with at home Palliative consult with [facility] on Thursday and [facility] start of care on . 05/13/2017. This afternoon it was determined that pt was going to need a blood transfusion today. Pt is also needing IV pain meds, [facility] notified and [facility] notified that discharge will not happen today. C/M will follow. Date Signed: 05/11/2017 03:57 PM Electronically Signed By:Griselda Sauer
--- NOTE | 2017-05-11 19:03 | WOCRNPDOC ---
WOCRN Advanced Assessment Note - Skin Integrity Problem, Advanced Assess Left Upper Clavicle Tumor Dressing Type: Open to Air Exudate Amount: Excessive Exudate Characteristic(s): Sanguinous Integumentary Issue Intervention: Dressing Applied Monica Wound Tissue: Erythema Monica Wound Swelling: Moderate Skin Integrity Problem Comment: CTL Arnulfo removed mepitel contact layer and contacted wound care as tumor was bleeding profusely. This was mainly controlled with thrombix and pressure by the time wound care arrived in room. Tumor has significantly increased in size since previous assessment on Thursday. Controlled remaining bleeding with hemostatic granules. Monica tumor hair clipped with clippers. Patient visibly stressed and in discomfort, vomiting sporadically. 1.5 ABD's were cut to fit over tumor and secured with medipore tape after applying skin prep monica wound. Will attempt to obtain exudry products for patient. Tumor growth is too rapid to place a contact layer. Will discuss obtaining Tranexamic Acid for patient to use at home to help achieve hemostasis.
[2017-05-11] MEDS: ONDANSETRON DISINTEGRATING 4 MG TAB PO PRN (19:53)
[2017-05-11] MEDS: LORazepam 2 MG/ML INJ IVP PRN (22:36)
[2017-05-12] MEDS: ONDANSETRON 4 MG/2 ML VIAL IVP PRN ×4 (00:05→20:32)
[2017-05-12] MEDS: HYDROmorphONE/DILAUDID 1 MG/ML SYR IVP PRN ×4 (00:07→07:50)
[2017-05-12] MEDS: NS 1,000 ML IV SCH (00:10)
[2017-05-12] MEDS: ONDANSETRON DISINTEGRATING 4 MG TAB PO PRN ×2 (05:07→14:08)
[2017-05-12] MEDS: DEXAMETHASONE 10 MG/ML VIAL IVP SCH ×2 (08:51→20:32)
[2017-05-12] MEDS: SENNOSIDES/DOCUSATE SODIUM TAB PO SCH ×2 (08:52→22:16)
[2017-05-12] MEDS: FAMOTIDINE 20 MG/NACL 50 ML IV SCH (08:52)
[2017-05-12] MEDS: ENOXAPARIN 40 MG/0.4 ML SYR SC SCH (09:25)
--- NOTE | 2017-05-12 10:44 | SOAPPROG ---
SOAP Progress Note Assessment/Plan: Assessment: # 1 BRAF mutated melanoma: even though this is not a V600E and there is an associated NRAS mutation i think it would be reasonable a trial of dabrafenib and trametinib. The doses are 150 mg BID and 2 mg Q Day respectively. The medications should be delivered to his home today. #2. Pain control: improved with dilaudid and fentanyl #3. Nausea - variable control. #4. Bleeding - The tumor mass in his L SC fossa is now about 10cm in diameter and constantly oozing blood. I recommended a radiation therapy consultation to discuss palliative XRT to control bleeding and secondarily to try to help with pain relief. I spoke with Dr. Metzger who will consult today. I am concerned that this could burst and lead to a catastrophic hemorrhage. Plan: - Start dabrafinib/trametinib when available. I want to make sure he can hold them down before he is discharged. - continue supportive care - not ready for discharge at this time - palliative XRT consult with Dr. Metzger 45min floor time at bedside and in coordination of care. Subjective: pain is down to about 60% of what it was. mostly in R SC/shoulder area. Nausea control is variable. Objective: Vital Signs Temp Pulse Resp BP Pulse Ox 36.9 C 93 15 130/90 H 94 05/12/17 08:15 05/12/17 08:15 05/12/17 08:15 05/12/17 08:15 05/12/17 08:15 Laboratory Results 05/11/17 09:24 05/11/17 09:24 05/10/17 05/11/17 05/12/17 23:59 23:59 23:59 Intake Total 2050 1650 Output Total 2750 1750 2550 Balance -2750 300 -900 PT 14.8 SEC (12.0-15.0) 05/04/17 00:00 INR 1.16 (0.83-1.16) 05/04/17 00:00 Physical Exam - Physical Exam General Appearance: alert, moderate distress Neck: other (Fungating bleeding mass about 10cm in diameter L supraclavicular fossa) Respiratory: lungs clear Cardiac/Chest: regular rate, rhythm Skin: warm/dry Lymphatic: other (see neck description) Neuro/Psych: alert (but seems subdued) ICD10 Worksheet Patient Problems: Problems Problem Status Onset Large bowel obstruction Acute Melanoma Acute Palliative care encounter Acute
[2017-05-12 11:24] LABS: % IMMATURE GRANULYOCYTES 0.5 % (0.0-1.1); ABSOLUTE IMMATURE GRANULOCYTES 0.08 10^3/uL (0.00-0.10); ADD DIFF? NO; ADD MORPH? NO; ADD SCAN? NO; ATYPICAL LYMPHOCYTE FLAG 10 (0-99); FRAGMENT RBC FLAG 0 (0-99); HEMATOCRIT 28.6 % (40.0-51.0); LEFT SHIFT FLG 0 (0-99); LIPEMIA HEMOLYSIS FLAG 90 (0-99); MEAN CELL HEMOGLOBIN 29.9 pg (27.9-34.1); MEAN CELL VOLUME 85.4 fL (81.5-99.8); MEAN PLATELET VOLUME 9.6 fL (8.7-11.7); PLATELET CLUMPS FLAG 0 (0-99); PLATELET COUNT 512 10^3/uL (150-400); RED BLOOD CELL COUNT 3.35 10^6/uL (4.40-6.38); RED CELL DISTRIBUTION WIDTH 12.8 % (11.5-15.2)
[2017-05-12 11:39] LABS: ALANINE AMINOTRANSFERASE 42 IU/L (21-72); ALBUMIN 2.9 g/dL (3.5-5.0); ALKALINE PHOSPHATASE 151 IU/L (38-126); ANION GAP 10 mEq/L (8-16); ASPARTATE AMINOTRANSFERASE 34 IU/L (17-59); BILIRUBIN,TOTAL 1.1 mg/dL (0.1-1.4); CALCIUM 8.7 mg/dL (8.5-10.4); CARBON DIOXIDE 26 mEq/l (22-31); CHLORIDE 94 mEq/L (97-110); CREATININE 0.8 mg/dL (0.7-1.3); GLOMERULAR FILTRATION RATE > 60; GLUCOSE 113 mg/dL (70-100); POTASSIUM 4.8 mEq/L (3.5-5.2); SODIUM 130 mEq/L (134-144); TOTAL PROTEIN 5.7 g/dL (6.3-8.2)
[2017-05-12] MEDS: fentaNYL 25 MCG PATCH TD SCH (11:41)
[2017-05-12] MEDS ORDERED: TRANEXAMIC ACID 3,000 MG in NS 50 ML IRR ONE (13:52)
[2017-05-12] MEDS: HYDROmorphONE/DILAUDID 2 MG TAB PO PRN (14:08)
[2017-05-12] MEDS ORDERED: NS IRR PRN (14:36)
[2017-05-12] MEDS ORDERED: TRANEXAMIC ACID IRR PRN ×2 (14:36→16:40)
--- NOTE | 2017-05-12 15:31 | HOSPPROG ---
Hospitalist Progress Note Assessment/Plan: # Metastatic melanoma- plan for dabrafenib, trametinib. Medicaid approved, awaiting meds Neck mass remains very painful- wound care assisting and treatment - cont fentanyl patch - continue p.r.n. IV Dilaudid - continue p.o. dilaudid p.r.n. - continue wound care- adding topical tranexemic acid to neck mass - cont IV Decadron BID for pain control - patient considering options of either care in [place] versus PO chemotherapy here in [place] # Acute blood loss anemia - hgb 7.7 -> 10 after transfusion overnight - adding tranexemic acid to tumor for ongoing oozing/blood loss - monitor H&H daily # Presumed Hypovolemic hyponatremia- not eating much- receiving continuous IV NS - urine sodium elevated - suspect underlying SIADH sodium dropping daily 134-> 130 remaining stable here - do not want to fluid restrict as pt intake already quite poor - encourage PO intake in attempt to wean off IVF # Acute abdominal pain- CT abd (personally reviewed and interpreted) multiple liver and renal related metastases - no clear transition point Tolerating foods like rice- Having small BMs -using green coffee enemas completed 7 day course of Ertapenem for possible appendicitis (not visualized on CT) vs. peritonitis - cont prn meds and fentanyl as outlined above # Acute Nausea- stable today - cont Zyprexa - Cont steroids - cont prn Ativan # Leukocytosis- presumed due to steroids, afebrile 18-> 16 this am Oxygen saturations 95% on room air - continue to monitor # protein calorie malnutrition- BMI 17 - has lost 11kg since admission - dietary consultation # Goals: Po hospice evaluated 05/04- deciding on ultimate plan [place] vs oral chemo # DVT ppx: Lovenox # Diet: regular # Dispo- greater than 2 midnights as patient with severe acute pain requiring IV opioids, antiemetics I have discussed case with Dr. Mendoza - will continue current inpatient care - hoping to stabilize patient so he can tolerate PO chemo if he chooses Subjective: pain controlled overnight Objective: Vital Signs Temp Pulse Resp BP Pulse Ox 36.9 C 93 15 130/90 H 94 05/12/17 08:15 05/12/17 08:15 05/12/17 08:15 05/12/17 08:15 05/12/17 08:15 Laboratory Results 05/12/17 11:15 05/12/17 11:15 05/11/17 05/12/17 05/13/17 05:59 05:59 05:59 Intake Total 1200 2500 Output Total 1250 4050 250 Balance -50 -1550 -250 PT 14.8 SEC (12.0-15.0) 05/04/17 00:00 INR 1.16 (0.83-1.16) 05/04/17 00:00 - Physical Exam Constitutional: chronically ill appearing Eyes: anicteric sclera Ears, Nose, Mouth, Throat: moist mucous membranes Cardiovascular: regular rate and rhythym Respiratory: no respiratory distress Gastrointestinal: No distension Genitourinary: no bladder fullness Skin: normal color Musculoskeletal: No asymmetric calves Neurologic: AAOx3 Psychiatric: interacting appropriately Lymph, Heme, Immunologic: no cervical LAD ICD10 Worksheet Patient Problems: Problems Problem Status Onset Large bowel obstruction Acute Melanoma Acute Palliative care encounter Acute
[2017-05-12 18:22] VITALS: TEMP 98.2
[2017-05-12] MEDS: morphINE 10 MG/0.5 ML UDSYR PO PRN (20:33)
[2017-05-12] MEDS: LORazepam 2 MG/ML INJ IVP PRN (20:52)
[2017-05-12] MEDS: FAMOTIDINE 20 MG TAB PO SCH (22:16)
[2017-05-13] MEDS: morphINE 10 MG/0.5 ML UDSYR PO PRN ×4 (00:34→12:49)
[2017-05-13] MEDS: ONDANSETRON 4 MG/2 ML VIAL IVP PRN (07:55)
[2017-05-13 08:37] LABS: % IMMATURE GRANULYOCYTES 0.5 % (0.0-1.1); ABSOLUTE IMMATURE GRANULOCYTES 0.07 10^3/uL (0.00-0.10); ADD DIFF? NO; ADD MORPH? NO; ADD SCAN? NO; ATYPICAL LYMPHOCYTE FLAG 10 (0-99); FRAGMENT RBC FLAG 0 (0-99); HEMATOCRIT 27.4 % (40.0-51.0); HEMOGLOBIN 9.4 g/dL (13.7-17.5); LEFT SHIFT FLG 10 (0-99); LIPEMIA HEMOLYSIS FLAG 90 (0-99); MEAN CELL HEMOGLOBIN 29.3 pg (27.9-34.1); MEAN CELL HEMOGLOBIN CONCENTR. 34.3 g/dL (32.4-36.7); MEAN CELL VOLUME 85.4 fL (81.5-99.8); MEAN PLATELET VOLUME 9.3 fL (8.7-11.7); PLATELET CLUMPS FLAG 10 (0-99); PLATELET COUNT 512 10^3/uL (150-400); RED BLOOD CELL COUNT 3.21 10^6/uL (4.40-6.38); RED CELL DISTRIBUTION WIDTH 12.9 % (11.5-15.2)
[2017-05-13] MEDS: DEXAMETHASONE 10 MG/ML VIAL IVP SCH (08:40)
[2017-05-13] MEDS: FAMOTIDINE 20 MG TAB PO SCH (08:40)
[2017-05-13] MEDS: SENNOSIDES/DOCUSATE SODIUM TAB PO SCH (08:40)
[2017-05-13] MEDS: ENOXAPARIN 40 MG/0.4 ML SYR SC SCH (08:43)
[2017-05-13 08:56] LABS: ALANINE AMINOTRANSFERASE 36 IU/L (21-72); ALBUMIN 2.7 g/dL (3.5-5.0); ALKALINE PHOSPHATASE 154 IU/L (38-126); ASPARTATE AMINOTRANSFERASE 31 IU/L (17-59); BILIRUBIN,TOTAL 0.8 mg/dL (0.1-1.4); CALCIUM 8.6 mg/dL (8.5-10.4); CREATININE 0.8 mg/dL (0.7-1.3); GLOMERULAR FILTRATION RATE > 60; GLUCOSE 90 mg/dL (70-100); TOTAL PROTEIN 5.5 g/dL (6.3-8.2)
--- NOTE | 2017-05-13 09:37 | SOAPPROG ---
LILLI Progress Note Assessment/Plan: Assessment: # 1 BRAF mutated melanoma: even though this is not a V600E and there is an associated NRAS mutation i think it would be reasonable a trial of dabrafenib and trametinib. The doses are 150 mg BID and 2 mg Q Day respectively. The medications were not delivered yesterday. Hopefully today. His current plan is to go to a clinic in [place] for treatment. I recommended that they take the dabrafenib/trametinib with them. Tentative plan is for discharge today. #2. Pain control: adequate on current regimen. #3. Nausea - variable control. #4. Bleeding - The tumor mass in his L SC fossa is now about 10cm in diameter and constantly oozing blood. Family is well versed in wound care. Plan: - Patient is going to be discharged with a plan for admission to a facility in [place] for treatment of his melanoma - continue supportive care - I let him know that we will be happy to resume his care if he returns to the [place] area. 30 min floor time at bedside and in coordination of care. Objective: Vital Signs Temp Pulse Resp BP Pulse Ox 36.8 C 94 16 123/84 H 38 L 05/12/17 18:21 05/12/17 22:10 05/12/17 22:10 05/12/17 22:10 05/12/17 22:10 Laboratory Results 05/13/17 08:25 05/13/17 08:25 05/11/17 05/12/17 05/13/17 23:59 23:59 23:59 Intake Total 2050 1650 Output Total 1750 2950 600 Balance 300 -1300 -600 PT 14.8 SEC (12.0-15.0) 05/04/17 00:00 INR 1.16 (0.83-1.16) 05/04/17 00:00 Physical Exam - Physical Exam General Appearance: alert, mild distress Neuro/Psych: oriented x 3 ICD10 Worksheet Patient Problems: Problems Problem Status Onset Large bowel obstruction Acute Melanoma Acute Palliative care encounter Acute
[2017-05-13 09:39] LABS: ANION GAP 8 mEq/L (8-16); CARBON DIOXIDE 26 mEq/l (22-31); CHLORIDE 92 mEq/L (97-110); POTASSIUM 4.4 mEq/L (3.5-5.2); SODIUM 126 mEq/L (134-144)
--- NOTE | 2017-05-13 09:46 | PDDCSUM ---
Discharge Summary Discharge Summary: Dates of service 05/04-05/13/17 Discharge dx: # metastatic melanoma # acute blood loss anemia # hypovolemic hyponatremia # acute abdominal pain # acute nausea # protein calorie malnutrition Consultations: oncology Procedures: none Hospital course by problem: # Metastatic melanoma- initial plan for dabrafenib, trametinib. Has received meds but ultimately decided to go to [place] for experimental tx. -will dc with fentanyl patch, roxanol (did better with this than dilaudid), phenergan, zofran, decadron for sxs mgmt until arrival in [place] - has large bleeding neck mass overlying SCA that is concerning for tumor invasion and hemorrhage--patient understands that risk # Acute blood loss anemia - with ongoing oozing from wound as above, high risk, will need ongoing wound care and this will be established once patient arrives in [place] as well # Presumed Hypovolemic hyponatremia- not eating much- receiving continuous IV NS - urine sodium elevated - suspect underlying SIADH - do not want to fluid restrict as pt intake already quite poor, he will likely require IV fluids on arrival in [place] as well # Acute abdominal pain- CT abd (personally reviewed and interpreted) multiple liver and renal related metastases - no clear transition point Tolerating foods like rice- Having small BMs -using green coffee enemas completed 7 day course of Ertapenem for possible appendicitis (not visualized on CT) vs. peritonitis - cont prn meds and fentanyl as outlined above # Acute Nausea- stable today - cont Zyprexa - Cont steroids - cont prn Ativan # Leukocytosis- presumed due to steroids, afebrile continues to trend down Oxygen saturations 95% on room air - continue to monitor # protein calorie malnutrition- BMI 17 - has lost 11kg since admission - dietary consultation # Goals: dc to [place] for experimental treatment of cancer # DVT ppx: Lovenox # Diet: regular Meds: see EHR Dispo: dc to [place] per family and patients plan to try some experimental therapy > 50 minutes spent in dc of patient more than half in coordination of care
[2017-05-13 09:48] VITALS: BP 125/88; PULSE 93; RESP 18; O2SAT 96
[2017-05-13] MEDS: LORazepam 2 MG/ML INJ IVP PRN (12:50)
--- NOTE | 2017-05-13 13:49 | ASDISCHSUM ---
Discharge Information Plan Status:Home with No Needs Medically Cleared to Leave: Discharge Date: D/C Disposition: ADT D/C Disposition:Home Health Service Projected Discharge Date:05/11/2017 11:00 AM Transportation at D/C: Discharge Delay Reason: Follow-Up Date:05/11/2017 11:00 AM Discharge Slot: Final Diagnosis: Placement Information Referral Type:*Hospice Referral ID:[id number] Provider Name: Address 1: Phone Number: Address 2: Fax Number: City: Selection Factors: State: Referral Type:*Home Health Care Services Referral ID:[id number] Provider Name: Address 1: Phone Number: Address 2: Fax Number: City: Selection Factors: State: Patient Contact Information Contact Name:KRYSTYNA Relationship: Address:[address] [place] Work Phone: [facility] Phone: [facility] Code:[place] [address] Email: Financial Information Financial Class: Primary Plan Desc:[employer] Primary Plan Number:[id number] Secondary Plan Desc: Secondary Plan Number: Assessment Information [facility] CM Progress Note CM Note CM Note Notes: Med Data here to assess patient for Medicaid. Notified Medicaid approved. Pt physician notified. Cleared for Home Care if needed as well as Chemo therapy. Date Signed: 05/05/2017 02:33 PM Electronically Signed By:Griselda Sauer [facility] CM Progress Note CM Note CM Note Notes: Met with patient and partner to discuss plans for discharge. Pt expressed concerns around the many things he has had to be addressing during his time here. He was however anxious to discuss options to assist them at home. I again told them they had been approved for Medicaid which he was deeply grateful for. He also said he would be very open to having [facility] home care coming in. They wondered if there would be a possibility of getting a hospital bed and I told them this could be checked through Medicaid. Also, We discussed the possibility of getting HCBS services which could be explored further. They are also very open to having [facility] in conjunction with [facility] home [facility]. They expressed appreciation for the support they were receiving at [facility]. C/M will continue to follow. Date Signed: 05/05/2017 05:25 PM Electronically Signed By:Griselda Sauer [facility] CM Progress Note CM Note CM Note Notes: Met with pt and girlfriend Juliana and pt for distress screening and to discuss other DC needs. Pt could be ready for DC tomorrow. He will have [facility] and [facility] palliative. Submitted a ULTC 100 so that can pt can have HCBS services in the home. LM for Griselda to fill out [employer] betito. GF also requestd hospital bed and WC. Gave pt loan closet list ofr WC. [facility] may not be open until Thursday. C/M will submit paperwork on Thursday or Thursday. Pt will also need wound care supplies and it is uncertain if HC agency provides. gave pt info on [facility] for low cost med. supplies. Finally pt's distress screen was high at 8. Discussed pt's issues with him. Recommended a contract preparer referral b/c they will have the time to sit with pt and discuss his concerns whcih include spiritual, anxiety and fear and concerns about hsi young children. Did suggest to pt that he reach out to family members that can help bring his children to [place] and also try to skype. C/M will continue to follow. Date Signed: 05/10/2017 06:27 PM Electronically Signed By:Yaneli Barragan [facility] CM Progress Note CM Note CM Note Notes: Plan had been for pt to discharge home with at home Palliative consult with [facility] on Thursday and [facility] start of care on . 05/13/2017. This afternoon it was determined that pt was going to need a blood transfusion today. Pt is also needing IV pain meds, [facility] notified and [facility] notified that discharge will not happen today. C/M will follow. Date Signed: 05/11/2017 03:57 PM Electronically Signed By:Griselda Sauer Intervention Information
--- NOTE | 2017-05-13 13:52 | ASMTCMCOM ---
CM Note CM Note Notes: Pt and girlfriend Juliana have made plans for pt to be admitted to an alternative tratment facility in [facility]. Pt Dc'd today. RN Arnulfo spent time with pt and gf talking with them about decision (see his note.) Dat helped pt with prior auth to get his medications filled before DC. Date Signed: 05/13/2017 01:52 PM Electronically Signed By:Yaneli Barragan
== END 2017-05-13 13:07 | disposition home or self-care (01) | DRG 375 ==
LOC: F1N 05-04 04:18
PROVIDERS: ADMIT Hospitalist; ATTEND Internal Medicine
PROC: 30233N1 Transfusion of Nonautologous Red Blood Cells into Peripheral Vein, Percutaneous Approach (ICD-10-PCS; principal; 2017-05-11)
DX: C78.6 Secondary malignant neoplasm of retroperitoneum and peritoneum (principal); K56.0 Paralytic ileus; C78.7 Secondary malignant neoplasm of liver and intrahepatic bile duct; C77.0 Secondary and unspecified malignant neoplasm of lymph nodes of head, face and neck; C74.91 Malignant neoplasm of unspecified part of right adrenal gland; C79.00 Secondary malignant neoplasm of unspecified kidney and renal pelvis; C78.01 Secondary malignant neoplasm of right lung; C78.02 Secondary malignant neoplasm of left lung; Z85.820 Personal history of malignant melanoma of skin; D62 Acute posthemorrhagic anemia; E87.1 Hypo-osmolality and hyponatremia; E22.2 Syndrome of inappropriate secretion of antidiuretic hormone; E46 Unspecified protein-calorie malnutrition; Z68.1 Body mass index [BMI] 19.9 or less, adult
CPT/HCPCS: 96374; J1100; J1170; J1335; J1650; J1885; J2060; J2405; J2550; P9016; P9021; Q9967